=== PATIENT | male | born 1945 | race American Indian/Alaskan Native ===

== ENCOUNTER 2018-10-08 14:26 | Inpatient (IN) | payer MEDICARE, OTHER ==
[2018-10-08] MEDS ORDERED: KEPPRA 1,000 MG/NS 0.75% 100ML 1,000 MG/100 ML BAG IV ONE (14:33)
--- NOTE | 2018-10-08 14:38 | Emergency Department Report ---
ED General Adult HPI - General Stated complaint: STROKE Time Seen by Provider: 10/08/18 14:29 - History of Present Illness Initial comments: 73-year-old male who apparently I have seen before under somewhat similar circumstances. The patient had a generalized seizure today. Paramedics reported that his pulse oximetry showed a value of 60% on their arrival. They placed him on high flow O2. He arrives in the emergency department with moderate respiratory distress. He is not verbal. According to medics they perceive that he had a right facial droop after his seizure. I did not appreciate that at the time of his initial arrival. He is lethargic and unable to provide any history, apparently postictal. I believe the patient is from a [facility] setting. Per my previous note: Patient is accompanied by his that said that he was disoriented today and had some twitching movements. She claims that he periodically gets disoriented but when she gives him a Keppra it resolves after a few minutes. She was concerned today because she gave a Keppra and he continued to be confused. He has some twitching of his right foot. EMS was notified. On their arrival patient was found to be conscious sitting upright in a chair. He had elevated blood pressure of 180/120. Paramedics noted some "myoclonic jerking" in his right arm. Patient currently feels like he is back to normal. According to the , his last seizure was in 2011. He is status post a craniotomy for a presumably hypertensive hemorrhage. He's had "several TIAs eating up to this event in 2011 with a history of CVA in 2004. The states that he is able to walk. He has mild right-sided weakness. He has no acute weakness. He is able to speak coherently at this time. He had no slurred speech or any visual change. According to the he has some chronic aphasia. -: minutes(s) -: minutes(s) - Related Data Home Medications Medication Instructions Recorded Confirmed Last Taken Aspirin [Baby Aspirin] 81 mg PO QDAY 04/02/14 04/02/14 Unknown Atorvastatin [Lipitor] 40 mg PO QHS 04/02/14 04/02/14 Unknown Bicalutamide [Casodex] 50 mg PO DAILY 04/02/14 04/02/14 Unknown Enoxaparin [Lovenox] 40 mg SQ QDAY 04/02/14 04/02/14 Unknown Leuprolide Acetate [Eligard] 22.5 mg SQ 04/02/14 04/02/14 Unknown Losartan [Cozaar] 100 mg PO QDAY 04/02/14 04/02/14 Unknown Potassium Chloride [K-Dur] 10 meq PO QDAY 04/02/14 04/02/14 Unknown amLODIPine [Norvasc] 5 mg PO DAILY 04/02/14 04/02/14 Unknown hydroCHLOROthiazide [Hctz] 25 mg PO QDAY 04/02/14 04/02/14 Unknown levETIRAcetam [Keppra] 500 mg PO BID 04/02/14 04/02/14 Unknown Allergies Allergy/AdvReac Type Severity Reaction Status Date / Time No Known Allergies Allergy Verified 04/03/14 01:38 ED Review of Systems ROS: Stated complaint: STROKE Other details as noted in HPI Comment: Unobtainable due to pts medical conditions ED Past Medical Hx - Past Medical History Hx Hypertension: Yes Hx Seizures: Yes (focal seizures R arm) Hx COPD: Yes Additional medical history: High cholesterol, Rectal bleeding - Surgical History Additional Surgical History: head surgery from previous cva - Social History Smoking Status: Former Smoker (none 10 years) Substance Use Type: Alcohol (none 10 years), Prescribed - Medications Home Medications: Home Medications Medication Instructions Recorded Confirmed Last Taken Type Aspirin [Baby Aspirin] 81 mg PO QDAY 04/02/14 04/02/14 Unknown History Atorvastatin [Lipitor] 40 mg PO QHS 04/02/14 04/02/14 Unknown History Bicalutamide [Casodex] 50 mg PO DAILY 04/02/14 04/02/14 Unknown History Enoxaparin [Lovenox] 40 mg SQ QDAY 04/02/14 04/02/14 Unknown History Leuprolide Acetate [Eligard] 22.5 mg SQ 04/02/14 04/02/14 Unknown History Losartan [Cozaar] 100 mg PO QDAY 04/02/14 04/02/14 Unknown History Potassium Chloride [K-Dur] 10 meq PO QDAY 04/02/14 04/02/14 Unknown History amLODIPine [Norvasc] 5 mg PO DAILY 04/02/14 04/02/14 Unknown History hydroCHLOROthiazide [Hctz] 25 mg PO QDAY 04/02/14 04/02/14 Unknown History levETIRAcetam [Keppra] 500 mg PO BID 04/02/14 04/02/14 Unknown History ED Physical Exam - General Limitations: Physical Limitation General appearance: lethargic, other (moderate respiratory distress) - Head Head exam: Present: other (healed craniotomy scar) - Eye Eye exam: Absent: scleral icterus - ENT ENT exam: Present: other (no facial asymmetry) - Neck Neck exam: Absent: tenderness, meningismus - Respiratory Respiratory exam: Present: accessory muscle use, other (port right chest) - Cardiovascular Cardiovascular Exam: Present: normal rhythm, tachycardia - GI/Abdominal GI/Abdominal exam: Present: soft, distended, tenderness, guarding, rebound, other (healed celiotomy scar) - Extremities Exam Extremities exam: Present: normal inspection - Neurological Exam Neurological exam: Present: other (NIH stroke score is non properly calculable at this point. The patient is post ictal.) - Psychiatric Psychiatric exam: Present: flat affect - Skin Skin exam: Present: warm, dry ED Course Vital Signs 10/08/18 10/08/18 10/08/18 14:46 14:51 15:00 Temperature 102.1 F H Pulse Rate 136 H 130 H 138 H Respiratory 29 H 20 29 H Rate Blood Pressure 99/60 88/55 90/54 Blood Pressure [Right] O2 Sat by Pulse 78 L 86 Oximetry 10/08/18 10/08/18 10/08/18 15:16 15:37 15:43 Temperature Pulse Rate 151 H 139 H Respiratory 29 H 29 H 29 H Rate Blood Pressure 99/70 Blood Pressure 101/67 [Right] O2 Sat by Pulse 100 100 Oximetry - Reevaluation(s) Reevaluation #1: Chest x-ray seems to be consistent with right-sided pneumonia. The patient is tachycardic in the 130s. He is quite. I believe he likely has severe sepsis. He also has bilateral nephrostomy tubes. I am uncertain as to his recent history since I had seen him several years ago. At this point he will be treated empirically for sepsis. Awaiting ABG result. 10/08/18 14:51 Reevaluation #2: Patient's blood pressure is maintaining. He is fairly tachycardic. His BNP of over 3000. I am giving him boluses of IV fluid. Certainly has a significant cardiomyopathy. 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 I have discussed the end of life care with this patient's . She would like him to be a full code. I have explained to her that he does have sepsis and respiratory failure as well as all his other comorbidities. Now with standing, she would like the patient to be a full code. He does not have a current indication for endotracheal intubation at this time. He will be admitted to the ICU by Dr. Valdivia. 10/08/18 15:55 Reevaluation #3: Discussed with Dr. Fountain. Okay to admit to ICU. We'll discuss with Dr. Coates. 10/08/18 16:05 ED Medical Decision Making - Lab Data Result diagrams: 10/08/18 14:50 10/08/18 14:50 Laboratory Results - last 24 hr 10/08/18 10/08/18 10/08/18 14:50 14:50 14:50 WBC 25.2 H RBC 4.00 Hgb 9.9 L Hct 31.4 L MCV 79 L MCH 25 L MCHC 32 RDW 20.3 H Plt Count 514 H Lymph % (Auto) [employer] [place] % (Auto) Outdoor Ad[employer] Leasing Agent Eos % (Auto) Outdoor Advertising Leasing Agent Baso % (Auto) Outdoor Advertising Leasing Agent Lymph # [employer] Leasing Agent [place] # Outdoor Advertising Leasing Agent Eos # Outdoor Advertising Leasing Agent Baso # Outdoor Advertising Leasing Agent Seg Neutrophils % Outdoor Advertising Leasing Agent Seg Neutrophils # Outdoor Advertising Leasing Agent PT 15.3 H INR 1.17 H APTT 31.5 POC ABG pH POC ABG pCO2 POC ABG pO2 POC ABG HCO3 POC ABG Total CO2 POC ABG O2 Sat POC ABG Base Excess FiO2 Sodium 141 Potassium 3.3 L Chloride 101.0 Carbon Dioxide 23 Anion Gap 20 BUN 23 H Creatinine 1.8 H Estimated GFR 45 BUN/Creatinine Ratio 13 Glucose 173 H Lactic Acid Calcium 10.2 Magnesium Total Bilirubin Direct Bilirubin Indirect Bilirubin AST ALT Alkaline Phosphatase Ammonia Troponin T 0.052 H NT-Pro-B Natriuret Pep Total Protein Albumin Albumin/Globulin Ratio Triglycerides 94 Cholesterol 199 LDL Cholesterol Direct 143 H HDL Cholesterol 48 Cholesterol/HDL Ratio 4.14 10/08/18 10/08/18 10/08/18 14:50 14:50 14:50 WBC RBC Hgb Hct MCV MCH MCHC RDW Plt Count Lymph % (Auto) [place] % (Auto) Eos % (Auto) Baso % (Auto) Lymph # [place] # Eos # Baso # Seg Neutrophils % Seg Neutrophils # PT INR APTT POC ABG pH POC ABG pCO2 POC ABG pO2 POC ABG HCO3 POC ABG Total CO2 POC ABG O2 Sat POC ABG Base Excess FiO2 Sodium Potassium Chloride Carbon Dioxide Anion Gap BUN Creatinine Estimated GFR BUN/Creatinine Ratio Glucose Lactic Acid 3.80 H* Calcium Magnesium 1.40 L Total Bilirubin 0.90 Direct Bilirubin < 0.2 Indirect Bilirubin 0.7 AST 14 ALT < 5 L Alkaline Phosphatase 74 Ammonia 55.0 Troponin T NT-Pro-B Natriuret Pep 3870 H Total Protein 7.8 Albumin 3.5 L Albumin/Globulin Ratio 0.8 Triglycerides Cholesterol LDL Cholesterol Direct HDL Cholesterol Cholesterol/HDL Ratio 10/08/18 14:58 WBC RBC Hgb Hct MCV MCH MCHC RDW Plt Count Lymph % (Auto) [place] % (Auto) Eos % (Auto) Baso % (Auto) Lymph # [place] # Eos # Baso # Seg Neutrophils % Seg Neutrophils # PT INR APTT POC ABG pH 7.478 H POC ABG pCO2 26.1 L POC ABG pO2 151 H POC ABG HCO3 19.3 POC ABG Total CO2 20 POC ABG O2 Sat 100 POC ABG Base Excess -4 FiO2 100 Sodium Potassium Chloride Carbon Dioxide Anion Gap BUN Creatinine Estimated GFR BUN/Creatinine Ratio Glucose Lactic Acid Calcium Magnesium Total Bilirubin Direct Bilirubin Indirect Bilirubin AST ALT Alkaline Phosphatase Ammonia Troponin T NT-Pro-B Natriuret Pep Total Protein Albumin Albumin/Globulin Ratio Triglycerides Cholesterol LDL Cholesterol Direct HDL Cholesterol Cholesterol/HDL Ratio - EKG Data -: EKG Interpreted by Ks EKG shows normal: sinus rhythm Rate: tachycardia - EKG Data Interpretation: nonspecific ST-T wave sher, other (LVH, poor R-wave progression, left atrial enlargement, left anterior fascicular block, no acute ischemic changes) - Radiology Data Radiology results: report reviewed Suggest right-sided pneumonia Critical care attestation.: If time is entered above; I have spent that time in minutes in the direct care of this critically ill patient, excluding procedure time. ED Disposition Clinical Impression: Respiratory distress, Chronic renal insufficiency, stage II (mild), Toxic encephalopathy, Hypomagnesemia, Hypokalemia Sepsis Qualifiers: Sepsis type: sepsis due to unspecified organism Qualified Code(s): A41.9 - Sepsis, unspecified organism Disposition: OP ADMIT IP TO THIS HOSP Is pt being admited?: Yes Does the pt Need Aspirin: Yes Condition: Stable Time of Disposition: 16:08
[2018-10-08] MEDS ORDERED: MERREM 1,000 MG in NACL 0.9% 100 ML IV ONE (14:49)
--- NOTE | 2018-10-08 14:49 | XRay Report ---
AP CHEST: HISTORY: Respiratory distress No comparison. Subtle patchy infiltrate is suspected throughout the right lung. Correlate for pneumonia. The left lung is generally clear. No pleural effusion or pneumothorax. Heart size is within normal limits. A right [id number] terminates near the cavoatrial junction. IMPRESSION: Subtle right lung infiltrate. Correlate for pneumonia.
[2018-10-08] MEDS ORDERED: NACL 0.9% 1000 ML 1,000 ML IV ONE ×2 (14:50→17:55)
[2018-10-08] MEDS ORDERED: NACL 0.9% 1000 ML 1,000 ML ONE ×3 (14:53→22:09)
[2018-10-08] MEDS ORDERED: VANCOMYCIN PHARMACY TO DOSE IV SCH ×2 (15:00→22:00)
[2018-10-08 15:23] LABS: INR 1.17 (0.87-1.13)
[2018-10-08 15:24] LABS: Partial Thromboplastin Time 31.5 Sec. (24.2-36.6)
[2018-10-08 15:27] LABS: Hematocrit 31.4 % (35.5-45.6); Hemoglobin 9.9 gm/dl (11.8-15.2); Mean Corpuscular HGB Conc 32 % (32-34); Mean Corpuscular Volume 79 fl (84-94); Platelet Count 514 K/mm3 (140-440)
[2018-10-08 15:30] LABS: Calcium 10.2 mg/dL (8.4-10.2)
[2018-10-08 15:34] LABS: Albumin 3.5 g/dL (3.9-5)
[2018-10-08 15:35] LABS: Red Cell Distribution Width 20.3 % (13.2-15.2)
[2018-10-08 15:41] LABS: Alanine Aminotransferase < 5 units/L (7-56); Bilirubin,Direct < 0.2 mg/dL (0-0.2)
[2018-10-08] MEDS ORDERED: NACL 0.9% 1000 ML 500 ML IV ONE (15:54)
[2018-10-08 15:57] LABS: Chol/HDL Ratio 4.14 %
[2018-10-08] MEDS ORDERED: TYLENOL PR ONE (16:00)
[2018-10-08] MEDS ORDERED: MAGNESIUM SULFATE 2GM/50ML 2 GM/50 ML BAG IV ONE (16:06)
[2018-10-08] MEDS ORDERED: ASPIRIN PR ONE ×2 (16:08→18:33)
[2018-10-08 16:18] LABS: Basophils % (Manual) 0 % (0.0-1.8); Eosinophils % (Manual) 0 % (0.0-4.3); RBC Morphology Normal; Total Cells Counted 100
[2018-10-08] MEDS ORDERED: VANCOMYCIN 2,000 MG in NACL 0.9% 500 ML 500 ML IV ONE (18:00)
[2018-10-08] MEDS ORDERED: DUONEB *Not for PRN Use IH ONE (19:53)
[2018-10-08] MEDS ORDERED: PROVENTIL IH ONE (20:17)
[2018-10-08] MEDS ORDERED: ATIVAN ONE (20:59)
[2018-10-08] MEDS ORDERED: ATIVAN IV ONE (21:04)
[2018-10-08] MEDS ORDERED: TYLENOL PO PRN (21:31)
[2018-10-08] MEDS ORDERED: DILAUDID IV PRN (21:31)
[2018-10-08] MEDS ORDERED: SODIUM CHLORIDE FLUSH SYRINGE 10 ML IV PRN (21:31)
[2018-10-08] MEDS ORDERED: ZOFRAN IV PRN (21:31)
[2018-10-08] MEDS ORDERED: PROVENTIL IH PRN (21:34)
[2018-10-08] MEDS ORDERED: NACL 0.9% 1000 ML 1,000 ML IV SCH (22:00)
[2018-10-08] MEDS ORDERED: SOLU-Medrol ONE (22:17)
[2018-10-08] MEDS: SOLU-Medrol IV SCH (22:18)
[2018-10-08] MEDS: SODIUM CHLORIDE FLUSH SYRINGE 10 ML IV SCH (22:18)
[2018-10-08] MEDS: KEPPRA 750 MG in NACL 0.9% 100 ML IV SCH (23:36)
[2018-10-08] MEDS: MERREM/NS 500 MG/50 ML 500 MG/50 ML BAG IV SCH (23:36)
--- NOTE | 2018-10-09 03:28 | Cat Scan Report ---
FINAL REPORT PROCEDURE: CT HEAD/BRAIN WO CON TECHNIQUE: Computerized tomography of the head was performed without contrast material. HISTORY: neuro deficits <6hrs or sx present upon awakening COMPARISON: No prior studies are available for comparison. FINDINGS: Skull and scalp: Normal. Paranasal sinuses: Normal. Ventricles and subarachnoid spaces: Normal. Cerebrum: There is no evidence of acute intra hemorrhage, the hematoma or infarction. Moderate atroph y and periventricular deep white matter change. A larger area encephalomalacia identified in the left frontal and temporal lobes consistent with old infarction or trauma. Cerebellum and brainstem: No evidence of hemorrhage, acute infarction or mass. Vasculature: Normal. Comments: None. IMPRESSION: There is no evidence of an acute intracranial process. Moderate atrophy and slight periventricular de ep white matter change. Sequelae from infarction versus trauma right frontal and temporal lobes.
[2018-10-09 04:56] LABS: Hematocrit 31.3 % (35.5-45.6); Hemoglobin 9.8 gm/dl (11.8-15.2); Mean Corpuscular HGB Conc 31 % (32-34); Mean Corpuscular Volume 81 fl (84-94); Platelet Count 255 K/mm3 (140-440); Red Blood Count 3.87 M/mm3 (3.65-5.03)
[2018-10-09 04:57] LABS: Red Cell Distribution Width 20.6 % (13.2-15.2)
[2018-10-09 05:18] LABS: Albumin 2.5 g/dL (3.9-5); BUN/Creatinine Ratio 16; Blood Urea Nitrogen 26 mg/dL (9-20); Hemolysis Index 13
[2018-10-09 05:39] LABS: Anisocytosis 1+; Band Neutrophils # (Manual) 2.5 K/mm3; Basophils % (Manual) 0 % (0.0-1.8); Eosinophils % (Manual) 0 % (0.0-4.3); Ovalocytes 1+; Stomatocytes Few; Tear Drop Cells Few; Total Cells Counted 100
[2018-10-09 05:40] LABS: Burr Cells Few; Giant Platelets Rare; Large Platelets Few; Target Cells Rare
[2018-10-09 05:45] LABS: Alanine Aminotransferase < 5 units/L (7-56)
[2018-10-09] MEDS: SOLU-Medrol IV SCH ×3 (06:10→22:57)
[2018-10-09] MEDS: MERREM/NS 500 MG/50 ML 500 MG/50 ML BAG IV SCH (06:15)
[2018-10-09] MEDS ORDERED: SOLU-Medrol ONE ×2 (06:31→16:19)
--- NOTE | 2018-10-09 06:43 | Event Note ---
Date: 10/08/18 See dictated H/p in reports
[2018-10-09] MEDS ORDERED: DUONEB *Not for PRN Use IH ONE ×2 (08:33→12:43)
[2018-10-09] MEDS: DUONEB *Not for PRN Use IH SCH ×4 (08:34→21:40)
--- NOTE | 2018-10-09 08:35 | History and Physical Report ---
CHIEF COMPLAINT: Increasing shortness of breath and low oxygen saturations. HISTORY OF PRESENT ILLNESS: A 73-year-old male presents with generalized seizure followed by low oxygen saturations. EMS put the patient on high flow oxygen. The patient is put on BiPAP in the Emergency Room. The patient became very short of breath over the last few hours since morning. No fever or chills. No cough. Respiratory distress present. PAST MEDICAL HISTORY: Significant for hypertension, seizures, COPD, high cholesterol and rectal bleeding. PAST SURGICAL HISTORY: Had surgery from previous cerebrovascular accident. SOCIAL HISTORY: Former smoker, did not smoke for the last 10 years. Alcohol occasionally. CURRENT MEDICATIONS: On the chart. REVIEW OF SYSTEMS: Significant for increasing shortness of breath for the last few hours. Sudden onset. Also one episode of seizures. Otherwise, doing well. A 14-point review of systems done. PHYSICAL EXAMINATION: GENERAL: Elderly male, on BiPAP. Trying to cooperate. Bit lethargic. VITAL SIGNS: Temperature is 99.0. Blood pressure is 80/54. Pulse is 112. Initial sats were low 80%, improved to 100% with BiPAP. HEENT: Unremarkable. Pupils equal and reactive. NECK: Supple. Accessory muscles of respiration are prominent. LUNGS: Bilateral inspiratory rhonchi and expiratory rhonchi present. CARDIOVASCULAR SYSTEM: S1, S2 heard. No gallop, no murmur, no rub. Apical impulse in left fifth intercostal space in midclavicular line. ABDOMEN: Soft and benign. No hepatosplenomegaly. No guarding, no rigidity. Hernial orifices are normal. EXTREMITIES: Good pedal pulses. No pedal edema. CENTRAL NERVOUS SYSTEM: Alert and oriented x 4, nonfocal exam. LABORATORY DATA: Significant for white count of 25,200, H and H of 9.9 and 31.4, platelet count of 514,000. ABG significant for pH of 7.47, pCO2 of 26, pO2 of 151, bicarb of 19.3. Sodium of 141, potassium of 3.3, BUN and creatinine of 23 and 1.8, glucose of 173. A1c of 6.1. Lactic acid of 3.8, magnesium of 1.4. BNP of 3870. DIAGNOSTIC DATA: Chest x-ray shows right lower lobe infiltrate. ASSESSMENT AND PLAN: 1. Sepsis secondary to right lower lobe pneumonia. The patient initiated on sepsis protocol. The patient was started on meropenem, IV vancomycin. Not Zosyn. 2. Acute respiratory failure. The patient initiated on nebulizer treatments, IV Solu-Medrol at 60 mg q. 8 hours and IV antibiotics. 3. Chronic obstructive pulmonary disease exacerbation. Same nebulizer treatments, IV antibiotics and steroids. Critical care consult requested by Dr. Fountain. 4. Congestive heart failure is possibility. Echocardiogram ordered for ejection fraction. BNP is high. 5. Type 2 diabetes. The patient has a high blood glucose levels. Coverage for now. 6. Hypokalemia, supplemented. 7. Acute kidney injury, gentle IV hydration. 8. Deep venous thrombosis prophylaxis, Lovenox 40 mg subcutaneous daily. CRITICAL CARE STATEMENT: Critical care time 40 minutes. JOB# [id number] RITA/EDGARDO ROSSI
[2018-10-09] MEDS: SODIUM CHLORIDE FLUSH SYRINGE 10 ML IV SCH ×2 (10:15→22:59)
--- NOTE | 2018-10-09 10:45 | Consultation ---
History of Present Illness Consult date: 10/09/18 Consult reason: shortness of breath History of present illness: 73 year old male with past medical history of metastatic prostate cancer currently residing in a rehab facility brought in to the ER due to altered mental status. reports that patient has a history of recurrent seizures since his CVA in 2004. He had a seizure yesterday and since then he has been altered and not returning to his baseline mental capacity. A CT head showing NA P. denies previous history of cardiac disease. denies history of chest pain, heaviness or shortness of breath. She however reports that patient started having respiratory distress after his seizure episode. ECG is showing sinus tachycardia, LAE, and poor R wave progression. Troponin T 0.052. Past History Past Medical History: atrial fib, cancer, DVT, hypertension, seizures, stroke Past Surgical History: TURP, Other (bladder surgery) Social history: no significant social history Family history: no significant family history Medications and Allergies Allergies Allergy/AdvReac Type Severity Reaction Status Date / Time No Known Allergies Allergy Verified 04/03/14 01:38 Home Medications Medication Instructions Recorded Confirmed Last Taken Type Aspirin [Aspirin BABY CHEW TAB] 81 mg PO QDAY 10/08/18 10/08/18 Unknown History Enzalutamide (Nf) [Xtandi (Nf)] 120 mg PO QDAY 10/08/18 10/08/18 Unknown History Ferrous Sulfate [Feosol] 325 mg PO QDAY 10/08/18 10/08/18 Unknown History Finasteride [Propecia] 1 mg PO QDAY 10/08/18 10/08/18 Unknown History Lisinopril [Zestril TAB] 30 mg PO QDAY 10/08/18 10/08/18 Unknown History Losartan Potassium 50 mg PO QDAY 10/08/18 10/08/18 Unknown History Metoprolol [Lopressor] 25 mg PO BID 10/08/18 10/08/18 Unknown History Tamsulosin [Flomax] 0.4 mg PO QDAY 10/08/18 10/08/18 Unknown History Triamterene/Hydrochlorothiazid 1 each PO QDAY 10/08/18 10/08/18 Unknown History [Triamterene-Hctz 75-50 mg Tab] levETIRAcetam [Keppra TAB] 500 mg PO BID 10/08/18 10/08/18 Unknown History predniSONE [Prednisone] 5 mg PO BID 10/08/18 10/08/18 Unknown History Active Meds: Active Medications Acetaminophen (Tylenol) 650 mg PO Q4H PRN PRN Reason: Pain MILD(1-3)/Fever >100.5/[place] Albuterol (Proventil) 2.5 mg IH Q4HRT PRN PRN Reason: Shortness Of Breath Albuterol/Ipratropium (Duoneb *Not For Prn Use*) 1 ampul IH QIDRT [facility] Last Admin: 10/09/18 08:34 Dose: 1 ampul Documented by: Hydromorphone HCl (Dilaudid) 0.5 mg IV Q3H PRN PRN Reason: Pain , Severe (7-10) Vancomycin HCl 1,750 mg/ (Sodium Chloride) 535 mls @ 333.333 mls/hr IV Q24H [facility] Sodium Chloride (Nacl 0.9% 1000 Ml) 1,000 mls @ 42 mls/hr IV DIRECT [facility] Meropenem (Merrem/Ns 500 Mg/50 Ml) 500 mg in 50 mls @ 50 mls/hr IV Q6HR [facility] Last Admin: 10/09/18 06:15 Dose: 50 mls/hr Documented by: Levetiracetam 750 mg/ Sodium (Chloride) 107.5 mls @ 400 mls/hr IV Q12HR [facility] Last Admin: 10/08/18 23:36 Dose: 400 mls/hr Documented by: Methylprednisolone Sodium Succinate (Solu-Medrol) 60 mg IV Q8HR [facility] Last Admin: 10/09/18 06:10 Dose: 60 mg Documented by: Ondansetron HCl (Zofran) 4 mg IV Q8H PRN PRN Reason: Nausea And Vomiting Sodium Chloride (Sodium Chloride Flush Syringe 10 Ml) 10 ml IV BID [facility] Last Admin: 10/08/18 22:18 Dose: 10 ml Documented by: Sodium Chloride (Sodium Chloride Flush Syringe 10 Ml) 10 ml IV PRN PRN PRN Reason: LINE FLUSH Review of Systems ROS unobtainable: due to mental status Physical Examination Vital Signs Pulse Resp BP Pulse Ox 137 H 29 H 99/60 100 10/08/18 14:41 10/08/18 14:41 10/08/18 14:41 10/08/18 14:41 General appearance: other (Unresponsive) Neck: Positive: neck supple Cardiac: Positive: Reg Rate and Rhythm Lungs: Positive: Ventilated Respirations Abdomen: Positive: Soft Extremities: Absent: edema Results 10/09/18 04:08 10/09/18 04:08 Cardiac Enzymes 10/08/18 10/09/18 Range/Units 14:50 04:08 AST 14 13 (5-40) units/L Coagulation 10/08/18 Range/Units 14:50 PT 15.3 H (12.2-14.9) Sec. INR 1.17 H (0.87-1.13) APTT 31.5 (24.2-36.6) Sec. Lipids 10/08/18 Range/Units 14:50 Triglycerides 94 (2-149) mg/dL Cholesterol 199 (50-199) mg/dL HDL Cholesterol 48 (40-59) mg/dL Cholesterol/HDL Ratio 4.14 % CBC 10/08/18 10/09/18 Range/Units 14:50 04:08 WBC 25.2 H 22.6 H (4.5-11.0) K/mm3 RBC 4.00 3.87 (3.65-5.03) M/mm3 Hgb 9.9 L 9.8 L (11.8-15.2) gm/dl Hct 31.4 L 31.3 L (35.5-45.6) % Plt Count 514 H 255 (140-440) K/mm3 Lymph # Yard Brakeman Gage # Yard Brakeman Eos # Yard Brakeman Baso # Yard Brakeman Comprehensive Metabolic Panel 10/08/18 10/08/18 10/09/18 Range/Units 14:50 14:50 04:08 Sodium 141 142 (137-145) mmol/L Potassium 3.3 L 3.9 (3.6-5.0) mmol/L Chloride 101.0 108.4 H (98-107) mmol/L Carbon Dioxide 23 16 L D (22-30) mmol/L BUN 23 H 26 H (9-20) mg/dL Creatinine 1.8 H 1.6 H (0.8-1.5) mg/dL Glucose 173 H 161 H (75-100) mg/dL Calcium 10.2 9.0 (8.4-10.2) mg/dL Direct Bilirubin < 0.2 (0-0.2) mg/dL Indirect Bilirubin 0.7 mg/dL AST 14 13 (5-40) units/L ALT < 5 L < 5 L (7-56) units/L Alkaline Phosphatase 74 58 (35-129) units/L Total Protein 7.8 6.9 (6.3-8.2) g/dL Albumin 3.5 L 2.5 L (3.9-5) g/dL - EKG Interpretation EKG shows: tachycardia EKG interpretations - Telemetry EKG Rhythm: Sinus Tachycardia Assessment and Plan Altered mental status likely secondary to a proloned post ictal state History of CVA 2004 with secondary seizures History of metastatic prostate cancer History of DVT s/p IVC filter History of atrial fibrillation per Suspect that patient is not on anticoagulation due to recent history of urinary bladder bleeding Respiratory failure Suspect aspiration pneumonia based on clinical pictures, CXR and significant leukocytosis No clinical evidence of CHF Non-specific troponin Reflex sinus tachycardia Acute renal failure Lactic acidosis Recommendations: Supportive care Clinical picture is consistent with sepsis No clinical evidence of CHF
[2018-10-09] MEDS: KEPPRA 750 MG in NACL 0.9% 100 ML IV SCH (10:53)
--- NOTE | 2018-10-09 11:34 | Progress Note ---
Assessment and Plan Assessment and plan: Breakthrough seizures. Patient on keppra. at bedside tells me patient was on 1000mg bid and dose decreased to 500mg bid few month ago. Will increase to 1000mg bid Acute resp failure continue BIPAP Pneumonia right lower lobe sepsis due to pneumonia. Started on iv Abx ID Physician consulted history of metastatic prostate cancer COPD History of afib Not on anticoagulation leukocytosis GEO. Nephrology consulted Full code status History Interval history: patient had seizure at SNF, brought to ED Hospitalist Physical - Physical exam Narrative exam: GEN: Not in acute distress,lying in bed, obese HEENT: Normocephalic, atraumatic, BIPAP mask on Neck: supple, No JVD Lungs: Clear to auscultation, no wheeze Heart:S1 and S2 regular, no murmurs, rubs or gallop, Abd:soft, non tender, non distended, normal bowel sounds Ext: No edema, no clubbing or cyanosis Neuro: Stupor - Constitutional Vitals: Temp Pulse Resp BP Pulse Ox 99.2 F 95 H 20 112/81 97 10/08/18 17:56 10/09/18 10:45 10/09/18 10:45 10/09/18 10:45 10/09/18 10:45 General appearance: Present: other (Unresponsive) Results - Labs CBC & Chem 7: 10/10/18 05:20 10/10/18 05:20 Labs: Laboratory Last Values WBC 22.6 K/mm3 (4.5-11.0) H 10/09/18 04:08 RBC 3.87 M/mm3 (3.65-5.03) 10/09/18 04:08 Hgb 9.8 gm/dl (11.8-15.2) L 10/09/18 04:08 Hct 31.3 % (35.5-45.6) L 10/09/18 04:08 MCV 81 fl (84-94) L 10/09/18 04:08 MCH 25 pg (28-32) L 10/09/18 04:08 MCHC 31 % (32-34) L 10/09/18 04:08 RDW 20.6 % (13.2-15.2) H 10/09/18 04:08 Plt Count 255 K/mm3 (140-440) 10/09/18 04:08 Lymph % (Auto) Associate Account Manager 10/08/18 14:50 [place] % (Auto) Associate Account Manager 10/08/18 14:50 Eos % (Auto) Associate Account Manager 10/08/18 14:50 Baso % (Auto) Associate Account Manager 10/08/18 14:50 Lymph # Associate Account Manager 10/08/18 14:50 [place] # Associate Account Manager 10/08/18 14:50 Eos # Associate Account Manager 10/08/18 14:50 Baso # Associate Account Manager 10/08/18 14:50 Add Manual Diff Complete 10/09/18 04:08 Total Counted 100 10/09/18 04:08 Seg Neutrophils % Associate Account Manager 10/09/18 04:08 Seg Neuts % (Manual) 84.0 % (40.0-70.0) H 10/09/18 04:08 Band Neutrophils % 11.0 % 10/09/18 04:08 Lymphocytes % (Manual) 2.0 % (13.4-35.0) L 10/09/18 04:08 Reactive Lymphs % (Man) 0 % 10/09/18 04:08 Monocytes % (Manual) 3.0 % (0.0-7.3) 10/09/18 04:08 Eosinophils % (Manual) 0 % (0.0-4.3) 10/09/18 04:08 Basophils % (Manual) 0 % (0.0-1.8) 10/09/18 04:08 Metamyelocytes % 0 % 10/09/18 04:08 Myelocytes % 0 % 10/09/18 04:08 Promyelocytes % 0 % 10/09/18 04:08 Blast Cells % 0 % 10/09/18 04:08 Nucleated RBC % Not Reportable 10/09/18 04:08 Seg Neutrophils # Associate Account Manager 10/08/18 14:50 Seg Neutrophils # Man 19.0 K/mm3 (1.8-7.7) H 10/09/18 04:08 Band Neutrophils # 2.5 K/mm3 10/09/18 04:08 Lymphocytes # (Manual) 0.5 K/mm3 (1.2-5.4) L 10/09/18 04:08 Abs React Lymphs (Man) 0.0 K/mm3 10/09/18 04:08 Monocytes # (Manual) 0.7 K/mm3 (0.0-0.8) 10/09/18 04:08 Eosinophils # (Manual) 0.0 K/mm3 (0.0-0.4) 10/09/18 04:08 Basophils # (Manual) 0.0 K/mm3 (0.0-0.1) 10/09/18 04:08 Metamyelocytes # 0.0 K/mm3 10/09/18 04:08 Myelocytes # 0.0 K/mm3 10/09/18 04:08 Promyelocytes # 0.0 K/mm3 10/09/18 04:08 Blast Cells # 0.0 K/mm3 10/09/18 04:08 WBC Morphology Not Reportable 10/09/18 04:08 Hypersegmented Neuts Not Reportable 10/09/18 04:08 Hyposegmented Neuts Not Reportable 10/09/18 04:08 Hypogranular Neuts Not Reportable 10/09/18 04:08 Smudge Cells Not Reportable 10/09/18 04:08 Toxic Granulation Not Reportable 10/09/18 04:08 Toxic Vacuolation Not Reportable 10/09/18 04:08 Dohle Bodies Not Reportable 10/09/18 04:08 Pelger-Huet Anomaly Not Reportable 10/09/18 04:08 Sydnee Rods Not Reportable 10/09/18 04:08 Platelet Estimate Appears normal 10/09/18 04:08 Clumped Platelets Not Reportable 10/09/18 04:08 Plt Clumps, EDTA Not Reportable 10/09/18 04:08 Large Platelets Few 10/09/18 04:08 Giant Platelets Rare 10/09/18 04:08 Platelet Satelliting Not Reportable 10/09/18 04:08 Plt Morphology Comment Not Reportable 10/09/18 04:08 RBC Morphology Not Reportable 10/09/18 04:08 Dimorphic RBCs Not Reportable 10/09/18 04:08 Polychromasia Not Reportable 10/09/18 04:08 Hypochromasia Not Reportable 10/09/18 04:08 Poikilocytosis Not Reportable 10/09/18 04:08 Anisocytosis 1+ 10/09/18 04:08 Microcytosis 1+ 10/09/18 04:08 Macrocytosis Not Reportable 10/09/18 04:08 Spherocytes Not Reportable 10/09/18 04:08 Pappenheimer Bodies Not Reportable 10/09/18 04:08 Sickle Cells Not Reportable 10/09/18 04:08 Target Cells Rare 10/09/18 04:08 Tear Drop Cells Few 10/09/18 04:08 Ovalocytes 1+ 10/09/18 04:08 Stomatocytes Few 10/09/18 04:08 Helmet Cells Not Reportable 10/09/18 04:08 [place] Bodies Not Reportable 10/09/18 04:08 [place] Rings Not Reportable 10/09/18 04:08 [place] Cells Few 10/09/18 04:08 Bite Cells Not Reportable 10/09/18 04:08 Crenated Cell Not Reportable 10/09/18 04:08 Elliptocytes Few 10/09/18 04:08 Acanthocytes (Spur) Not Reportable 10/09/18 04:08 Rouleaux Not Reportable 10/09/18 04:08 Hemoglobin C Crystals Not Reportable 10/09/18 04:08 Schistocytes Not Reportable 10/09/18 04:08 Malaria parasites Not Reportable 10/09/18 04:08 [place] Bodies Not Reportable 10/09/18 04:08 Hem Pathologist Commnt No 10/09/18 04:08 PT 15.3 Sec. (12.2-14.9) H 10/08/18 14:50 INR 1.17 (0.87-1.13) H 10/08/18 14:50 APTT 31.5 Sec. (24.2-36.6) 10/08/18 14:50 Thrombin Time 19.0 Sec. (15.1-19.6) 10/08/18 14:50 POC ABG pH 7.433 (7.35-7.45) 10/08/18 18:38 POC ABG pCO2 28.7 (35-45) L 10/08/18 18:38 POC ABG pO2 219 (80-105) H 10/08/18 18:38 POC ABG HCO3 19.2 10/08/18 18:38 POC ABG Total CO2 20 10/08/18 18:38 POC ABG O2 Sat 100 10/08/18 18:38 POC ABG Base Excess -5 10/08/18 18:38 FiO2 60 % 10/08/18 18:38 Sodium 142 mmol/L (137-145) 10/09/18 04:08 Potassium 3.9 mmol/L (3.6-5.0) 10/09/18 04:08 Chloride 108.4 mmol/L (98-107) H 10/09/18 04:08 Carbon Dioxide 16 mmol/L (22-30) L D 10/09/18 04:08 Anion Gap 22 mmol/L 10/09/18 04:08 BUN 26 mg/dL (9-20) H 10/09/18 04:08 Creatinine 1.6 mg/dL (0.8-1.5) H 10/09/18 04:08 Estimated GFR 52 ml/min 10/09/18 04:08 BUN/Creatinine Ratio 16 % 10/09/18 04:08 Glucose 161 mg/dL (75-100) H 10/09/18 04:08 Hemoglobin A1c 6.1 % (4-6) H 10/08/18 14:50 Lactic Acid 3.80 mmol/L (0.7-2.0) H* 10/08/18 14:50 Calcium 9.0 mg/dL (8.4-10.2) 10/09/18 04:08 Magnesium 1.40 mg/dL (1.7-2.3) L 10/08/18 14:50 Total Bilirubin 0.70 mg/dL (0.1-1.2) 10/09/18 04:08 Direct Bilirubin < 0.2 mg/dL (0-0.2) 10/08/18 14:50 Indirect Bilirubin 0.7 mg/dL 10/08/18 14:50 AST 13 units/L (5-40) 10/09/18 04:08 ALT < 5 units/L (7-56) L 10/09/18 04:08 Alkaline Phosphatase 58 units/L (35-129) 10/09/18 04:08 Ammonia 55.0 umol/L (25-60) 10/08/18 14:50 Troponin T 0.052 ng/mL (0.00-0.029) H 10/08/18 14:50 NT-Pro-B Natriuret Pep 3870 pg/mL (0-900) H 10/08/18 14:50 Total Protein 6.9 g/dL (6.3-8.2) 10/09/18 04:08 Albumin 2.5 g/dL (3.9-5) L 10/09/18 04:08 Albumin/Globulin Ratio 0.6 % 10/09/18 04:08 Triglycerides 94 mg/dL (2-149) 10/08/18 14:50 Cholesterol 199 mg/dL (50-199) 10/08/18 14:50 LDL Cholesterol Direct 143 mg/dL (50-130) H 10/08/18 14:50 HDL Cholesterol 48 mg/dL (40-59) 10/08/18 14:50 Cholesterol/HDL Ratio 4.14 % 10/08/18 14:50
--- NOTE | 2018-10-09 12:05 | Consultation ---
History of Present Illness - Reason for Consult Consult date: 10/09/18 Sepsis Requesting physician: SEAN ALVARADO - History of Present Illness The patient is a 73-year-old male with metastatic prostate cancer status post bilateral nephrostomy tubes (as per his , these were recently exchanged, patient is on schedule for exchanges once a month), currently on chemotherapy through a PORT, residential resident, prior craniotomy and left frontotemporal encephalomalacia (?prior hypertensive bleed), seizure disorder was brought to the emergency room yesterday by EMS. As per the patient's , the patient developed a seizure and had altered mental status after that. She had seen him the previous day and he appeared to be at his baseline state of health. Here, patient was noted to be hypoxic and in moderate respiratory distress. He was placed on BiPAP. He was also noted to have significant leukocytosis and a fever concerning for sepsis. He was empirically started on meropenem and vancomycin. Patient is currently on BiPAP, is able to follow basic commands. History is still limited due to altered mental status and BiPAP. History obtained by chart review and by discussing with patient's at bedside. Review of Systems: unable to obtain due to AMS and BiPAP. Past History Past Medical History: atrial fib, cancer, DVT, hypertension, seizures, stroke Past Surgical History: TURP, Other (bladder surgery) Social history: no significant social history Family history: no significant family history Medications and Allergies Allergies Allergy/AdvReac Type Severity Reaction Status Date / Time No Known Allergies Allergy Verified 04/03/14 01:38 Home Medications Medication Instructions Recorded Confirmed Last Taken Type Aspirin [Aspirin BABY CHEW TAB] 81 mg PO QDAY 10/08/18 10/08/18 Unknown History Enzalutamide (Nf) [Xtandi (Nf)] 120 mg PO QDAY 10/08/18 10/08/18 Unknown History Ferrous Sulfate [Feosol] 325 mg PO QDAY 10/08/18 10/08/18 Unknown History Finasteride [Propecia] 1 mg PO QDAY 10/08/18 10/08/18 Unknown History Lisinopril [Zestril TAB] 30 mg PO QDAY 10/08/18 10/08/18 Unknown History Losartan Potassium 50 mg PO QDAY 10/08/18 10/08/18 Unknown History Metoprolol [Lopressor] 25 mg PO BID 10/08/18 10/08/18 Unknown History Tamsulosin [Flomax] 0.4 mg PO QDAY 10/08/18 10/08/18 Unknown History Triamterene/Hydrochlorothiazid 1 each PO QDAY 10/08/18 10/08/18 Unknown History [Triamterene-Hctz 75-50 mg Tab] levETIRAcetam [Keppra TAB] 500 mg PO BID 10/08/18 10/08/18 Unknown History predniSONE [Prednisone] 5 mg PO BID 10/08/18 10/08/18 Unknown History Active Meds: Active Medications Acetaminophen (Tylenol) 650 mg PO Q4H PRN PRN Reason: Pain MILD(1-3)/Fever >100.5/[place] Albuterol (Proventil) 2.5 mg IH Q4HRT PRN PRN Reason: Shortness Of Breath Albuterol/Ipratropium (Duoneb *Not For Prn Use*) 1 ampul IH QIDRT [facility] Last Admin: 10/09/18 08:34 Dose: 1 ampul Documented by: Hydromorphone HCl (Dilaudid) 0.5 mg IV Q3H PRN PRN Reason: Pain , Severe (7-10) Vancomycin HCl 1,750 mg/ (Sodium Chloride) 535 mls @ 333.333 mls/hr IV Q24H [facility] Sodium Chloride (Nacl 0.9% 1000 Ml) 1,000 mls @ 42 mls/hr IV DIRECT [facility] Meropenem (Merrem/Ns 500 Mg/50 Ml) 500 mg in 50 mls @ 50 mls/hr IV Q6HR [facility] Last Admin: 10/09/18 06:15 Dose: 50 mls/hr Documented by: Levetiracetam 750 mg/ Sodium (Chloride) 107.5 mls @ 400 mls/hr IV Q12HR [facility] Last Admin: 10/09/18 10:53 Dose: 400 mls/hr Documented by: Methylprednisolone Sodium Succinate (Solu-Medrol) 60 mg IV Q8HR [facility] Last Admin: 10/09/18 06:10 Dose: 60 mg Documented by: Ondansetron HCl (Zofran) 4 mg IV Q8H PRN PRN Reason: Nausea And Vomiting Sodium Chloride (Sodium Chloride Flush Syringe 10 Ml) 10 ml IV BID [facility] Last Admin: 10/08/18 22:18 Dose: 10 ml Documented by: Sodium Chloride (Sodium Chloride Flush Syringe 10 Ml) 10 ml IV PRN PRN PRN Reason: LINE FLUSH Physical Examination - Physical Exam Narrative exam: Physical Exam: Constitutional: Drowsy, on BiPAP, can be awakened Head, Ears, Nose: Normocephalic, atraumatic. External ears, nose normal Eyes: Conjunctivae/corneas clear. No icterus. No ptosis. Neck: Supple, no meningeal signs Oral: BiPAP, unable to examine Cardiovascular: S1, S2 normal. Respiratory: Good air entry, clear to auscultation bilaterally GI: Soft, non-tender; bowel sounds normal. No peritoneal signs Musculoskeletal: No pedal edema, no cyanosis. B/L Nephrostomy tubes + with dark urine Skin: No rash or abscess Hem/Lymphatic: No palpable cervical or supraclavicular nodes. No lymphangitis Psych: no agitation Neurological: drowsy, can be awakened, following simple commands. - Constitutional Vitals: Vital Signs Temp Pulse Resp BP Pulse Ox 99.2 F 95 H 20 112/81 97 10/08/18 17:56 10/09/18 10:45 10/09/18 10:45 10/09/18 10:45 10/09/18 10:45 Temperature -Last 24 Hours Temperature 99.2 F Temperature 102.1 F Results - Labs CBC & Chem 7: 10/09/18 04:08 10/09/18 04:08 Labs: Abnormal lab results 10/08/18 10/08/18 10/08/18 Range/Units 14:50 14:50 14:50 WBC 25.2 H (4.5-11.0) K/mm3 Hgb 9.9 L (11.8-15.2) gm/dl Hct 31.4 L (35.5-45.6) % MCV 79 L (84-94) fl MCH 25 L (28-32) pg MCHC (32-34) % RDW 20.3 H (13.2-15.2) % Plt Count 514 H (140-440) K/mm3 Seg Neuts % (Manual) 91.0 H (40.0-70.0) % Lymphocytes % (Manual) 4.0 L (13.4-35.0) % Seg Neutrophils # Man 22.9 H (1.8-7.7) K/mm3 Lymphocytes # (Manual) 1.0 L (1.2-5.4) K/mm3 Monocytes # (Manual) 1.3 H (0.0-0.8) K/mm3 PT 15.3 H (12.2-14.9) Sec. INR 1.17 H (0.87-1.13) POC ABG pH (7.35-7.45) POC ABG pCO2 (35-45) POC ABG pO2 (80-105) Potassium 3.3 L (3.6-5.0) mmol/L Chloride (98-107) mmol/L Carbon Dioxide (22-30) mmol/L BUN 23 H (9-20) mg/dL Creatinine 1.8 H (0.8-1.5) mg/dL Glucose 173 H (75-100) mg/dL Hemoglobin A1c (4-6) % Lactic Acid (0.7-2.0) mmol/L Magnesium (1.7-2.3) mg/dL ALT (7-56) units/L Troponin T 0.052 H (0.00-0.029) ng/mL NT-Pro-B Natriuret Pep (0-900) pg/mL Albumin (3.9-5) g/dL LDL Cholesterol Direct 143 H (50-130) mg/dL 10/08/18 10/08/18 10/08/18 Range/Units 14:50 14:50 14:50 WBC (4.5-11.0) K/mm3 Hgb (11.8-15.2) gm/dl Hct (35.5-45.6) % MCV (84-94) fl MCH (28-32) pg MCHC (32-34) % RDW (13.2-15.2) % Plt Count (140-440) K/mm3 Seg Neuts % (Manual) (40.0-70.0) % Lymphocytes % (Manual) (13.4-35.0) % Seg Neutrophils # Man (1.8-7.7) K/mm3 Lymphocytes # (Manual) (1.2-5.4) K/mm3 Monocytes # (Manual) (0.0-0.8) K/mm3 PT (12.2-14.9) Sec. INR (0.87-1.13) POC ABG pH (7.35-7.45) POC ABG pCO2 (35-45) POC ABG pO2 (80-105) Potassium (3.6-5.0) mmol/L Chloride (98-107) mmol/L Carbon Dioxide (22-30) mmol/L BUN (9-20) mg/dL Creatinine (0.8-1.5) mg/dL Glucose (75-100) mg/dL Hemoglobin A1c 6.1 H (4-6) % Lactic Acid 3.80 H* (0.7-2.0) mmol/L Magnesium 1.40 L (1.7-2.3) mg/dL ALT < 5 L (7-56) units/L Troponin T (0.00-0.029) ng/mL NT-Pro-B Natriuret Pep 3870 H (0-900) pg/mL Albumin 3.5 L (3.9-5) g/dL LDL Cholesterol Direct (50-130) mg/dL 10/08/18 10/08/18 10/09/18 Range/Units 14:58 18:38 04:08 WBC 22.6 H (4.5-11.0) K/mm3 Hgb 9.8 L (11.8-15.2) gm/dl Hct 31.3 L (35.5-45.6) % MCV 81 L (84-94) fl MCH 25 L (28-32) pg MCHC 31 L (32-34) % RDW 20.6 H (13.2-15.2) % Plt Count (140-440) K/mm3 Seg Neuts % (Manual) 84.0 H (40.0-70.0) % Lymphocytes % (Manual) 2.0 L (13.4-35.0) % Seg Neutrophils # Man 19.0 H (1.8-7.7) K/mm3 Lymphocytes # (Manual) 0.5 L (1.2-5.4) K/mm3 Monocytes # (Manual) (0.0-0.8) K/mm3 PT (12.2-14.9) Sec. INR (0.87-1.13) POC ABG pH 7.478 H (7.35-7.45) POC ABG pCO2 26.1 L 28.7 L (35-45) POC ABG pO2 151 H 219 H (80-105) Potassium (3.6-5.0) mmol/L Chloride (98-107) mmol/L Carbon Dioxide (22-30) mmol/L BUN (9-20) mg/dL Creatinine (0.8-1.5) mg/dL Glucose (75-100) mg/dL Hemoglobin A1c (4-6) % Lactic Acid (0.7-2.0) mmol/L Magnesium (1.7-2.3) mg/dL ALT (7-56) units/L Troponin T (0.00-0.029) ng/mL NT-Pro-B Natriuret Pep (0-900) pg/mL Albumin (3.9-5) g/dL LDL Cholesterol Direct (50-130) mg/dL 10/09/18 Range/Units 04:08 WBC (4.5-11.0) K/mm3 Hgb (11.8-15.2) gm/dl Hct (35.5-45.6) % MCV (84-94) fl MCH (28-32) pg MCHC (32-34) % RDW (13.2-15.2) % Plt Count (140-440) K/mm3 Seg Neuts % (Manual) (40.0-70.0) % Lymphocytes % (Manual) (13.4-35.0) % Seg Neutrophils # Man (1.8-7.7) K/mm3 Lymphocytes # (Manual) (1.2-5.4) K/mm3 Monocytes # (Manual) (0.0-0.8) K/mm3 PT (12.2-14.9) Sec. INR (0.87-1.13) POC ABG pH (7.35-7.45) POC ABG pCO2 (35-45) POC ABG pO2 (80-105) Potassium (3.6-5.0) mmol/L Chloride 108.4 H (98-107) mmol/L Carbon Dioxide 16 L D (22-30) mmol/L BUN 26 H (9-20) mg/dL Creatinine 1.6 H (0.8-1.5) mg/dL Glucose 161 H (75-100) mg/dL Hemoglobin A1c (4-6) % Lactic Acid (0.7-2.0) mmol/L Magnesium (1.7-2.3) mg/dL ALT < 5 L (7-56) units/L Troponin T (0.00-0.029) ng/mL NT-Pro-B Natriuret Pep (0-900) pg/mL Albumin 2.5 L (3.9-5) g/dL LDL Cholesterol Direct (50-130) mg/dL - Imaging and Cardiology Chest x-ray: report reviewed, image reviewed (subtle right lung infiltrate) CT Scan - head: report reviewed, image reviewed (left frontoparietal encepha lomalacia, no acute findings.) Assessment and Plan Cultures: 10/08/2018 blood cultures: In progress A/P: 73-year-old male with metastatic prostate cancer status post bilateral nephrostomy tubes (as per his , these were recently exchanged, patient is on schedule for exchanges once a month), currently on chemotherapy through a PORT, residential resident, prior craniotomy and left frontotemporal encephalomalacia, seizure disorder, admitted following a seizure episode: #1 Sepsis probably secondary to right-sided pneumonia causing acute respiratory failure: Patient may have had an aspiration episode during or post seizure. Lactate on admission elevated. #2 Right-sided pneumonia: Patient apparently was at baseline state of health a day prior. Suspect aspiration. Multiple antibiotics could cause lowering of seizure threshold including carbapenems, cefepime, metronidazole. Hence, since he is a residential resident and start patient on IV Zosyn, renally adjusted. Continue vancomycin. #3 Acute kidney injury, present on admission: Renally dose antimicrobials #4 Acute encephalopathy, seizure disorder: Trying to minimize antibiotics that can lower seizure threshold. #5 Metastatic prostate cancer: on chemo, has PORT, has bilateral nephrostomy tubes. Recs: Discontinued meropenem Started IV Zosyn renally adjusted, continue IV vancomycin with close renal function monitoring follow-up blood cultures Monitor fever and WBC count MD [facility] C: [phone] O: [phone] F: [phone]
[2018-10-09] MEDS ORDERED: ZOSYN/NS 4.5GM/100ML 4.5 GM/100 ML VIAL IV ONE (16:19)
[2018-10-09] MEDS: ZOSYN/NS 4.5GM/100ML 4.5 GM/100 ML VIAL IV SCH (16:30)
[2018-10-09] MEDS: VANCOMYCIN 1,750 MG in NACL 0.9% 500 ML 500 ML IV SCH (18:05)
[2018-10-09] MEDS: KEPPRA 1,000 MG/NS 0.75% 100ML 1,000 MG/100 ML BAG IV SCH (21:44)
[2018-10-09 23:12] LABS: Bacteria,Urine 1+ /HPF (Negative); Bilirubin,Urine NEG (Negative); Blood,Urine SM (Negative); Color,Urine Amber (Yellow); Mucus,Urine 1+ /HPF; Urobilinogen,Urine < 2.0 mg/dL (<2.0)
[2018-10-10] MEDS: ZOSYN/NS 4.5GM/100ML 4.5 GM/100 ML VIAL IV SCH ×3 (00:26→15:36)
[2018-10-10] MEDS: SOLU-Medrol IV SCH ×3 (05:36→22:42)
[2018-10-10 05:53] LABS: Hematocrit 24.7 % (35.5-45.6); Hemoglobin 7.9 gm/dl (11.8-15.2); Mean Corpuscular HGB Conc 32 % (32-34); Mean Corpuscular Volume 79 fl (84-94); Platelet Count 299 K/mm3 (140-440); Red Blood Count 3.14 M/mm3 (3.65-5.03)
[2018-10-10 05:55] LABS: Red Cell Distribution Width 21.2 % (13.2-15.2)
[2018-10-10 06:23] LABS: Calcium 8.9 mg/dL (8.4-10.2)
[2018-10-10] MEDS: DUONEB *Not for PRN Use IH SCH ×4 (09:25→21:06)
--- NOTE | 2018-10-10 10:40 | Progress Note ---
Assessment and Plan Cultures: 10/08/2018 blood cultures: In progress A/P: 73-year-old male with metastatic prostate cancer status post bilateral nephrostomy tubes (as per his , these were recently exchanged, patient is on schedule for exchanges once a month), currently on chemotherapy through a PORT, retirement resident, prior craniotomy and left frontotemporal encephalomalacia, seizure disorder, admitted following a seizure episode: #1 Sepsis Improved. probably secondary to right-sided pneumonia causing acute respiratory failure: Patient may have had an aspiration episode during or post seizure. Lactate on admission elevated. #2 Right-sided pneumonia: Patient apparently was at baseline state of health a day prior. Suspect aspiration. Multiple antibiotics could cause lowering of seizure threshold including carbapenems, cefepime, metronidazole. Hence, since he is a retirement resident and start patient on IV Zosyn, renally adjusted. Continue vancomycin. #3 Acute kidney injury, present on admission: Renally dose antimicrobials #4 Acute encephalopathy, seizure disorder: Trying to minimize antibiotics that can lower seizure threshold. #5 Metastatic prostate cancer: on chemo, has PORT, has bilateral nephrostomy tubes. Recs: Continue IV Zosyn renally adjusted, continue IV vancomycin with close renal function monitoring follow-up blood cultures Monitor fever and WBC count [facility] M: [phone] O:[phone] Subjective Date of service: 10/10/18 Interval history: Patient seen and examined. Denied pain, SOB or fevers. Stated that he was feeling better today. Nurses notes, lab and reports reviewed, discussed with patient. Objective - Exam Narrative Exam: Constitutional: Sleepy, easily abusable, no acute distress Head, Ears, Nose: Normocephalic, atraumatic. External ears, nose normal Eyes: Conjunctivae/corneas clear. No icterus. No ptosis. Neck: Supple, no meningeal signs Oral: unable to examine Cardiovascular: S1, S2 normal. Respiratory: Good air entry, clear to auscultation bilaterally GI: Soft, non-tender; bowel sounds normal. No peritoneal signs Musculoskeletal: No pedal edema, no cyanosis. B/L Nephrostomy tubes + with dark urine Skin: No rash or abscess Hem/Lymphatic: No palpable cervical or supraclavicular nodes. No lymphangitis Psych: no agitation Neurological: drowsy, can be awakened, following simple commands. - Constitutional Vitals: Vital Signs Temp Pulse Resp BP Pulse Ox 97.7 F 59 L 17 130/90 98 10/10/18 08:32 10/10/18 09:26 10/10/18 09:26 10/10/18 08:32 10/10/18 09:26 Temperature -Last 24 Hours Temperature 97.7 F Temperature 98.2 F Temperature 97.9 F Temperature 99.2 F - Labs CBC & Chem 7: 10/10/18 05:20 10/10/18 05:20 Labs: Abnormal lab results 10/09/18 10/09/18 10/10/18 Range/Units 11:46 21:51 05:20 WBC 19.2 H (4.5-11.0) K/mm3 RBC 3.14 L (3.65-5.03) M/mm3 Hgb 7.9 L (11.8-15.2) gm/dl Hct 24.7 L D (35.5-45.6) % MCV 79 L (84-94) fl MCH 25 L (28-32) pg RDW 21.2 H (13.2-15.2) % Potassium (3.6-5.0) mmol/L Chloride (98-107) mmol/L Carbon Dioxide (22-30) mmol/L BUN (9-20) mg/dL Glucose (75-100) mg/dL Lactic Acid (0.7-2.0) mmol/L Troponin T 0.033 H D (0.00-0.029) ng/mL Urine WBC (Auto) 57.0 H (0.0-6.0) /HPF 10/10/18 10/10/18 Range/Units 05:20 05:20 WBC (4.5-11.0) K/mm3 RBC (3.65-5.03) M/mm3 Hgb (11.8-15.2) gm/dl Hct (35.5-45.6) % MCV (84-94) fl MCH (28-32) pg RDW (13.2-15.2) % Potassium 3.1 L D (3.6-5.0) mmol/L Chloride 109.4 H (98-107) mmol/L Carbon Dioxide 21 L (22-30) mmol/L BUN 37 H (9-20) mg/dL Glucose 134 H (75-100) mg/dL Lactic Acid 2.20 H* (0.7-2.0) mmol/L Troponin T (0.00-0.029) ng/mL Urine WBC (Auto) (0.0-6.0) /HPF
[2018-10-10] MEDS: KEPPRA 1,000 MG/NS 0.75% 100ML 1,000 MG/100 ML BAG IV SCH ×2 (11:27→22:42)
[2018-10-10] MEDS: SODIUM CHLORIDE FLUSH SYRINGE 10 ML IV SCH ×2 (11:28→22:43)
--- NOTE | 2018-10-10 12:01 | Progress Note ---
Addendum entered and electronically signed by OSEI FLOYD MD 10/10/18 17:03: Conservative cardiac medical therapy. 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 currently in sinus rhythm. Conservative cardiac management. Subjective Date of service: 10/10/18 Interval history: Patient is resting in bed comfortably. He has no cardiac complaints. Objective Vital Signs Temp Pulse Pulse Resp Resp BP BP 10/10/18 09:26 59 L 17 10/10/18 08:32 97.7 F 81 16 130/90 10/10/18 08:00 57 L 18 10/10/18 04:40 98.2 F 92 H 17 109/69 10/10/18 04:21 77 11 L 98/75 10/10/18 04:11 74 19 98/75 10/10/18 04:01 78 15 98/75 10/10/18 04:00 97 H 10/10/18 03:51 70 21 98/75 10/10/18 03:41 73 13 10/10/18 03:31 78 18 10/10/18 03:21 79 20 10/10/18 03:15 10/10/18 01:19 84 19 10/10/18 01:09 87 23 10/10/18 00:51 97.9 F 74 17 98/52 10/09/18 22:30 99.2 F 73 10 L 101/67 10/09/18 22:01 81 13 98/75 10/09/18 21:51 83 12 98/75 10/09/18 21:43 79 13 98/75 10/09/18 21:31 73 10 L 104/65 10/09/18 21:15 77 15 116/70 10/09/18 21:01 81 13 120/81 10/09/18 20:45 87 16 120/81 10/09/18 20:31 83 16 106/71 01/16/19 20:15 80 15 108/69 10/09/18 20:01 91 H 14 110/68 10/09/18 19:45 82 14 110/68 10/09/18 19:31 81 21 111/77 10/09/18 19:15 82 19 125/77 10/09/18 19:01 81 12 120/71 10/09/18 17:45 80 14 113/79 10/09/18 17:31 81 13 99/63 10/09/18 17:15 85 18 99/63 10/09/18 15:31 84 24 118/82 10/09/18 15:15 90 13 110/82 10/09/18 15:01 95 H 17 93/66 10/09/18 14:45 96 H 18 103/73 10/09/18 14:31 101 H 18 93/66 10/09/18 14:15 95 H 16 109/67 10/09/18 14:01 98 H 16 106/79 10/09/18 13:45 96 H 17 112/74 10/09/18 13:30 96 H 16 106/79 10/09/18 13:15 97 H 16 114/75 10/09/18 13:01 96 H 17 104/71 10/09/18 12:50 93 H 28 H 10/09/18 12:48 93 H 28 H 104/71 10/09/18 12:45 91 H 15 104/71 10/09/18 12:31 90 14 109/74 10/09/18 12:15 91 H 16 102/74 10/09/18 12:01 90 16 111/73 Pulse Ox 10/10/18 09:26 98 10/10/18 08:32 95 10/10/18 08:00 10/10/18 04:40 98 10/10/18 04:21 100 10/10/18 04:11 100 10/10/18 04:01 100 10/10/18 04:00 10/10/18 03:51 100 10/10/18 03:41 100 10/10/18 03:31 98 10/10/18 03:21 100 10/10/18 03:15 99 10/10/18 01:19 10/10/18 01:09 10/10/18 00:51 100 10/09/18 22:30 100 10/09/18 22:01 98 10/09/18 21:51 99 10/09/18 21:43 10/09/18 21:31 100 10/09/18 21:15 98 10/09/18 21:01 98 10/09/18 20:45 99 10/09/18 20:31 95 10/09/18 20:15 99 10/09/18 20:01 99 10/09/18 19:45 98 10/09/18 19:31 99 10/09/18 19:15 96 10/09/18 19:01 98 10/09/18 17:45 100 10/09/18 17:31 100 10/09/18 17:15 10/09/18 15:31 99 10/09/18 15:15 10/09/18 15:01 100 10/09/18 14:45 100 10/09/18 14:31 100 10/09/18 14:15 10/09/18 14:01 100 10/09/18 13:45 99 10/09/18 13:30 100 10/09/18 13:15 100 10/09/18 13:01 99 10/09/18 12:50 10/09/18 12:48 99 10/09/18 12:45 99 10/09/18 12:31 10/09/18 12:15 100 10/09/18 12:01 - Physical Examination General: No Apparent Distress HEENT: Positive: PERRL Neck: Positive: trachea midline Cardiac: Positive: Reg Rate and Rhythm Lungs: Positive: Decreased Breath Sounds Extremities: Absent: edema - Labs and Meds CBC 10/10/18 Range/Units 05:20 WBC 19.2 H (4.5-11.0) K/mm3 RBC 3.14 L (3.65-5.03) M/mm3 Hgb 7.9 L (11.8-15.2) gm/dl Hct 24.7 L D (35.5-45.6) % Plt Count 299 (140-440) K/mm3 Comprehensive Metabolic Panel 10/10/18 Range/Units 05:20 Sodium 145 (137-145) mmol/L Potassium 3.1 L D (3.6-5.0) mmol/L Chloride 109.4 H (98-107) mmol/L Carbon Dioxide 21 L (22-30) mmol/L BUN 37 H (9-20) mg/dL Creatinine 1.5 (0.8-1.5) mg/dL Glucose 134 H (75-100) mg/dL Calcium 8.9 (8.4-10.2) mg/dL
--- NOTE | 2018-10-10 15:20 | Progress Note ---
Assessment and Plan Assessment and plan: Breakthrough seizures. Patient on keppra. at bedside tells me patient was on 1000mg bid and dose decreased to 500mg bid few month ago. Increased Keppra to 1000mg bid Acute resp failure continue BIPAP Pneumonia right lower lobe sepsis due to pneumonia. Started on iv Abx ID Physician following history of metastatic prostate cancer COPD History of afib Not on anticoagulation leukocytosis GEO. Nephrology consulted Full code status History Interval history: patient had seizure at [facility], brought to ED Now awake,alert Hospitalist Physical - Physical exam Narrative exam: GEN: Not in acute distress,lying in bed, obese HEENT: Normocephalic, atraumatic, Neck: supple, No JVD Lungs: Clear to auscultation, no wheeze Heart:S1 and S2 regular, no murmurs, rubs or gallop, Abd:soft, non tender, non distended, normal bowel sounds Ext: No edema, no clubbing or cyanosis Neuro: AAO x 3, moves all ext - Constitutional Vitals: Temp Pulse Resp BP Pulse Ox 97.7 F 60 18 130/90 98 10/10/18 08:32 10/10/18 14:18 10/10/18 14:18 10/10/18 08:32 10/10/18 09:26 General appearance: Present: other (Unresponsive) Results - Labs CBC & Chem 7: 10/11/18 06:54 10/11/18 06:54 Labs: Laboratory Last Values WBC 19.2 K/mm3 (4.5-11.0) H 10/10/18 05:20 RBC 3.14 M/mm3 (3.65-5.03) L 10/10/18 05:20 Hgb 7.9 gm/dl (11.8-15.2) L 10/10/18 05:20 Hct 24.7 % (35.5-45.6) L D 10/10/18 05:20 MCV 79 fl (84-94) L 10/10/18 05:20 MCH 25 pg (28-32) L 10/10/18 05:20 MCHC 32 % (32-34) 10/10/18 05:20 RDW 21.2 % (13.2-15.2) H 10/10/18 05:20 Plt Count 299 K/mm3 (140-440) 10/10/18 05:20 Lymph % (Auto) Supervisor Blasting 10/08/18 14:50 [place] % (Auto) Supervisor Blasting 10/08/18 14:50 Eos % (Auto) Supervisor Blasting 10/08/18 14:50 Baso % (Auto) Supervisor Blasting 10/08/18 14:50 Lymph # Supervisor Blasting 10/08/18 14:50 [place] # Supervisor Blasting 10/08/18 14:50 Eos # Supervisor Blasting 10/08/18 14:50 Baso # Supervisor Blasting 10/08/18 14:50 Add Manual Diff Complete 10/09/18 04:08 Total Counted 100 10/09/18 04:08 Seg Neutrophils % Supervisor Blasting 10/09/18 04:08 Seg Neuts % (Manual) 84.0 % (40.0-70.0) H 10/09/18 04:08 Band Neutrophils % 11.0 % 10/09/18 04:08 Lymphocytes % (Manual) 2.0 % (13.4-35.0) L 10/09/18 04:08 Reactive Lymphs % (Man) 0 % 10/09/18 04:08 Monocytes % (Manual) 3.0 % (0.0-7.3) 10/09/18 04:08 Eosinophils % (Manual) 0 % (0.0-4.3) 10/09/18 04:08 Basophils % (Manual) 0 % (0.0-1.8) 10/09/18 04:08 Metamyelocytes % 0 % 10/09/18 04:08 Myelocytes % 0 % 10/09/18 04:08 Promyelocytes % 0 % 10/09/18 04:08 Blast Cells % 0 % 10/09/18 04:08 Nucleated RBC % Not Reportable 10/09/18 04:08 Seg Neutrophils # Supervisor Blasting 10/08/18 14:50 Seg Neutrophils # Man 19.0 K/mm3 (1.8-7.7) H 10/09/18 04:08 Band Neutrophils # 2.5 K/mm3 10/09/18 04:08 Lymphocytes # (Manual) 0.5 K/mm3 (1.2-5.4) L 10/09/18 04:08 Abs React Lymphs (Man) 0.0 K/mm3 10/09/18 04:08 Monocytes # (Manual) 0.7 K/mm3 (0.0-0.8) 10/09/18 04:08 Eosinophils # (Manual) 0.0 K/mm3 (0.0-0.4) 10/09/18 04:08 Basophils # (Manual) 0.0 K/mm3 (0.0-0.1) 10/09/18 04:08 Metamyelocytes # 0.0 K/mm3 10/09/18 04:08 Myelocytes # 0.0 K/mm3 10/09/18 04:08 Promyelocytes # 0.0 K/mm3 10/09/18 04:08 Blast Cells # 0.0 K/mm3 10/09/18 04:08 WBC Morphology Not Reportable 10/09/18 04:08 Hypersegmented Neuts Not Reportable 10/09/18 04:08 Hyposegmented Neuts Not Reportable 10/09/18 04:08 Hypogranular Neuts Not Reportable 10/09/18 04:08 Smudge Cells Not Reportable 10/09/18 04:08 Toxic Granulation Not Reportable 10/09/18 04:08 Toxic Vacuolation Not Reportable 10/09/18 04:08 Dohle Bodies Not Reportable 10/09/18 04:08 Pelger-Huet Anomaly Not Reportable 10/09/18 04:08 Sydnee Rods Not Reportable 10/09/18 04:08 Platelet Estimate Appears normal 10/09/18 04:08 Clumped Platelets Not Reportable 10/09/18 04:08 Plt Clumps, EDTA Not Reportable 10/09/18 04:08 Large Platelets Few 10/09/18 04:08 Giant Platelets Rare 10/09/18 04:08 Platelet Satelliting Not Reportable 10/09/18 04:08 Plt Morphology Comment Not Reportable 10/09/18 04:08 RBC Morphology Not Reportable 10/09/18 04:08 Dimorphic RBCs Not Reportable 10/09/18 04:08 Polychromasia Not Reportable 10/09/18 04:08 Hypochromasia Not Reportable 10/09/18 04:08 Poikilocytosis Not Reportable 10/09/18 04:08 Anisocytosis 1+ 10/09/18 04:08 Microcytosis 1+ 10/09/18 04:08 Macrocytosis Not Reportable 10/09/18 04:08 Spherocytes Not Reportable 10/09/18 04:08 Pappenheimer Bodies Not Reportable 10/09/18 04:08 Sickle Cells Not Reportable 10/09/18 04:08 Target Cells Rare 10/09/18 04:08 Tear Drop Cells Few 10/09/18 04:08 Ovalocytes 1+ 10/09/18 04:08 Stomatocytes Few 10/09/18 04:08 Helmet Cells Not Reportable 10/09/18 04:08 Fung-[place] Bodies Not Reportable 10/09/18 04:08 [place] Rings Not Reportable 10/09/18 04:08 Bubba Cells Few 10/09/18 04:08 Bite Cells Not Reportable 10/09/18 04:08 Crenated Cell Not Reportable 10/09/18 04:08 Elliptocytes Few 10/09/18 04:08 Acanthocytes (Spur) Not Reportable 10/09/18 04:08 Rouleaux Not Reportable 10/09/18 04:08 Hemoglobin C Crystals Not Reportable 10/09/18 04:08 Schistocytes Not Reportable 10/09/18 04:08 Malaria parasites Not Reportable 10/09/18 04:08 Jose Luis Bodies Not Reportable 10/09/18 04:08 Hem Pathologist Commnt No 10/09/18 04:08 PT 15.3 Sec. (12.2-14.9) H 10/08/18 14:50 INR 1.17 (0.87-1.13) H 10/08/18 14:50 APTT 31.5 Sec. (24.2-36.6) 10/08/18 14:50 Thrombin Time 19.0 Sec. (15.1-19.6) 10/08/18 14:50 POC ABG pH 7.433 (7.35-7.45) 10/08/18 18:38 POC ABG pCO2 28.7 (35-45) L 10/08/18 18:38 POC ABG pO2 219 (80-105) H 10/08/18 18:38 POC ABG HCO3 19.2 10/08/18 18:38 POC ABG Total CO2 20 10/08/18 18:38 POC ABG O2 Sat 100 10/08/18 18:38 POC ABG Base Excess -5 10/08/18 18:38 FiO2 60 % 10/08/18 18:38 Sodium 145 mmol/L (137-145) 10/10/18 05:20 Potassium 3.1 mmol/L (3.6-5.0) L D 10/10/18 05:20 Chloride 109.4 mmol/L (98-107) H 10/10/18 05:20 Carbon Dioxide 21 mmol/L (22-30) L 10/10/18 05:20 Anion Gap 18 mmol/L 10/10/18 05:20 BUN 37 mg/dL (9-20) H 10/10/18 05:20 Creatinine 1.5 mg/dL (0.8-1.5) 10/10/18 05:20 Estimated GFR 56 ml/min 10/10/18 05:20 BUN/Creatinine Ratio 25 % 10/10/18 05:20 Glucose 134 mg/dL (75-100) H 10/10/18 05:20 Hemoglobin A1c 6.1 % (4-6) H 10/08/18 14:50 Lactic Acid 1.30 mmol/L (0.7-2.0) 10/10/18 07:34 Calcium 8.9 mg/dL (8.4-10.2) 10/10/18 05:20 Magnesium 1.40 mg/dL (1.7-2.3) L 10/08/18 14:50 Total Bilirubin 0.70 mg/dL (0.1-1.2) 10/09/18 04:08 Direct Bilirubin < 0.2 mg/dL (0-0.2) 10/08/18 14:50 Indirect Bilirubin 0.7 mg/dL 10/08/18 14:50 AST 13 units/L (5-40) 10/09/18 04:08 ALT < 5 units/L (7-56) L 10/09/18 04:08 Alkaline Phosphatase 58 units/L (35-129) 10/09/18 04:08 Ammonia 55.0 umol/L (25-60) 10/08/18 14:50 Troponin T 0.033 ng/mL (0.00-0.029) H D 10/09/18 11:46 NT-Pro-B Natriuret Pep 3870 pg/mL (0-900) H 10/08/18 14:50 Total Protein 6.9 g/dL (6.3-8.2) 10/09/18 04:08 Albumin 2.5 g/dL (3.9-5) L 10/09/18 04:08 Albumin/Globulin Ratio 0.6 % 10/09/18 04:08 Triglycerides 94 mg/dL (2-149) 10/08/18 14:50 Cholesterol 199 mg/dL (50-199) 10/08/18 14:50 LDL Cholesterol Direct 143 mg/dL (50-130) H 10/08/18 14:50 HDL Cholesterol 48 mg/dL (40-59) 10/08/18 14:50 Cholesterol/HDL Ratio 4.14 % 10/08/18 14:50 Urine Color [place] (Yellow) 10/09/18 21:51 Urine Turbidity Cloudy (Clear) 10/09/18 21:51 Urine pH 5.0 (5.0-7.0) 10/09/18 21:51 Ur Specific [place] 1.020 (1.003-1.030) 10/09/18 21:51 Urine Protein 100 mg/dl mg/dL (Negative) 10/09/18 21:51 Urine Glucose (UA) Neg mg/dL (Negative) 10/09/18 21:51 Urine Ketones Neg mg/dL (Negative) 10/09/18 21:51 Urine Blood Sm (Negative) 10/09/18 21:51 Urine Nitrite Neg (Negative) 10/09/18 21:51 Urine Bilirubin Neg (Negative) 10/09/18 21:51 Urine Urobilinogen < 2.0 mg/dL (<2.0) 10/09/18 21:51 Ur Leukocyte Esterase Sm (Negative) 10/09/18 21:51 Urine WBC (Auto) 57.0 /HPF (0.0-6.0) H 10/09/18 21:51 Urine RBC (Auto) 24.0 /HPF (0.0-6.0) 10/09/18 21:51 U Epithel Cells (Auto) < 1.0 /HPF (0-13.0) 10/09/18 21:51 Urine Bacteria (Auto) 1+ /HPF (Negative) 10/09/18 21:51 Urine Mucus 1+ /HPF 10/09/18 21:51 Urine Yeast (Budding) 3+ /HPF 10/09/18 21:51
[2018-10-10] MEDS ORDERED: K-DUR PO ONE (18:40)
[2018-10-10] MEDS: VANCOMYCIN 1,750 MG in NACL 0.9% 500 ML 500 ML IV SCH (18:54)
[2018-10-11] MEDS: ZOSYN/NS 4.5GM/100ML 4.5 GM/100 ML VIAL IV SCH ×2 (00:48→09:31)
[2018-10-11] MEDS: SOLU-Medrol IV SCH ×2 (06:39→14:41)
[2018-10-11 07:23] LABS: Hematocrit 23.7 % (35.5-45.6); Hemoglobin 7.5 gm/dl (11.8-15.2); Mean Corpuscular HGB Conc 32 % (32-34); Mean Corpuscular Volume 78 fl (84-94); Platelet Count 278 K/mm3 (140-440); Red Blood Count 3.02 M/mm3 (3.65-5.03)
[2018-10-11 07:45] LABS: BUN/Creatinine Ratio 25; Blood Urea Nitrogen 33 mg/dL (9-20); Calcium 9.2 mg/dL (8.4-10.2); Hemolysis Index 1
[2018-10-11] MEDS: DUONEB *Not for PRN Use IH SCH ×2 (08:46→13:57)
--- NOTE | 2018-10-11 09:21 | Progress Note ---
Hospitalist Physical - Constitutional Vitals: Temp Pulse Resp BP Pulse Ox 98.0 F 61 18 137/83 98 10/11/18 05:02 10/11/18 05:02 10/11/18 05:02 10/11/18 05:02 10/11/18 05:02 General appearance: Present: other (Unresponsive) Results - Labs CBC & Chem 7: 10/11/18 06:54 10/11/18 06:54 Labs: Laboratory Last Values WBC 12.3 K/mm3 (4.5-11.0) H 10/11/18 06:54 RBC 3.02 M/mm3 (3.65-5.03) L 10/11/18 06:54 Hgb 7.5 gm/dl (11.8-15.2) L 10/11/18 06:54 Hct 23.7 % (35.5-45.6) L 10/11/18 06:54 MCV 78 fl (84-94) L 10/11/18 06:54 MCH 25 pg (28-32) L 10/11/18 06:54 MCHC 32 % (32-34) 10/11/18 06:54 RDW 21.0 % (13.2-15.2) H 10/11/18 06:54 Plt Count 278 K/mm3 (140-440) 10/11/18 06:54 Lymph % (Auto) Language Specialist 10/08/18 14:50 [place] % (Auto) Language Specialist 10/08/18 14:50 Eos % (Auto) Language Specialist 10/08/18 14:50 Baso % (Auto) Language Specialist 10/08/18 14:50 Lymph # Language Specialist 10/08/18 14:50 [place] # Language Specialist 10/08/18 14:50 Eos # Language Specialist 10/08/18 14:50 Baso # Language Specialist 10/08/18 14:50 Add Manual Diff Complete 10/09/18 04:08 Total Counted 100 10/09/18 04:08 Seg Neutrophils % Language Specialist 10/09/18 04:08 Seg Neuts % (Manual) 84.0 % (40.0-70.0) H 10/09/18 04:08 Band Neutrophils % 11.0 % 10/09/18 04:08 Lymphocytes % (Manual) 2.0 % (13.4-35.0) L 10/09/18 04:08 Reactive Lymphs % (Man) 0 % 10/09/18 04:08 Monocytes % (Manual) 3.0 % (0.0-7.3) 10/09/18 04:08 Eosinophils % (Manual) 0 % (0.0-4.3) 10/09/18 04:08 Basophils % (Manual) 0 % (0.0-1.8) 10/09/18 04:08 Metamyelocytes % 0 % 10/09/18 04:08 Myelocytes % 0 % 10/09/18 04:08 Promyelocytes % 0 % 10/09/18 04:08 Blast Cells % 0 % 10/09/18 04:08 Nucleated RBC % Not Reportable 10/09/18 04:08 Seg Neutrophils # Language Specialist 10/08/18 14:50 Seg Neutrophils # Man 19.0 K/mm3 (1.8-7.7) H 10/09/18 04:08 Band Neutrophils # 2.5 K/mm3 10/09/18 04:08 Lymphocytes # (Manual) 0.5 K/mm3 (1.2-5.4) L 10/09/18 04:08 Abs React Lymphs (Man) 0.0 K/mm3 10/09/18 04:08 Monocytes # (Manual) 0.7 K/mm3 (0.0-0.8) 10/09/18 04:08 Eosinophils # (Manual) 0.0 K/mm3 (0.0-0.4) 10/09/18 04:08 Basophils # (Manual) 0.0 K/mm3 (0.0-0.1) 10/09/18 04:08 Metamyelocytes # 0.0 K/mm3 10/09/18 04:08 Myelocytes # 0.0 K/mm3 10/09/18 04:08 Promyelocytes # 0.0 K/mm3 10/09/18 04:08 Blast Cells # 0.0 K/mm3 10/09/18 04:08 WBC Morphology Not Reportable 10/09/18 04:08 Hypersegmented Neuts Not Reportable 10/09/18 04:08 Hyposegmented Neuts Not Reportable 10/09/18 04:08 Hypogranular Neuts Not Reportable 10/09/18 04:08 Smudge Cells Not Reportable 10/09/18 04:08 Toxic Granulation Not Reportable 10/09/18 04:08 Toxic Vacuolation Not Reportable 10/09/18 04:08 Dohle Bodies Not Reportable 10/09/18 04:08 Pelger-Huet Anomaly Not Reportable 10/09/18 04:08 Sydnee Rods Not Reportable 10/09/18 04:08 Platelet Estimate Appears normal 10/09/18 04:08 Clumped Platelets Not Reportable 10/09/18 04:08 Plt Clumps, EDTA Not Reportable 10/09/18 04:08 Large Platelets Few 10/09/18 04:08 Giant Platelets Rare 10/09/18 04:08 Platelet Satelliting Not Reportable 10/09/18 04:08 Plt Morphology Comment Not Reportable 10/09/18 04:08 RBC Morphology Not Reportable 10/09/18 04:08 Dimorphic RBCs Not Reportable 10/09/18 04:08 Polychromasia Not Reportable 10/09/18 04:08 Hypochromasia Not Reportable 10/09/18 04:08 Poikilocytosis Not Reportable 10/09/18 04:08 Anisocytosis 1+ 10/09/18 04:08 Microcytosis 1+ 10/09/18 04:08 Macrocytosis Not Reportable 10/09/18 04:08 Spherocytes Not Reportable 10/09/18 04:08 Pappenheimer Bodies Not Reportable 10/09/18 04:08 Sickle Cells Not Reportable 10/09/18 04:08 Target Cells Rare 10/09/18 04:08 Tear Drop Cells Few 10/09/18 04:08 Ovalocytes 1+ 10/09/18 04:08 Stomatocytes Few 10/09/18 04:08 Helmet Cells Not Reportable 10/09/18 04:08 Fung-[place] Bodies Not Reportable 10/09/18 04:08 [place] Rings Not Reportable 10/09/18 04:08 Bubba Cells Few 10/09/18 04:08 Bite Cells Not Reportable 10/09/18 04:08 Crenated Cell Not Reportable 10/09/18 04:08 Elliptocytes Few 10/09/18 04:08 Acanthocytes (Spur) Not Reportable 10/09/18 04:08 Rouleaux Not Reportable 10/09/18 04:08 Hemoglobin C Crystals Not Reportable 10/09/18 04:08 Schistocytes Not Reportable 10/09/18 04:08 Malaria parasites Not Reportable 10/09/18 04:08 [place] Bodies Not Reportable 10/09/18 04:08 Hem Pathologist Commnt No 10/09/18 04:08 PT 15.3 Sec. (12.2-14.9) H 10/08/18 14:50 INR 1.17 (0.87-1.13) H 10/08/18 14:50 APTT 31.5 Sec. (24.2-36.6) 10/08/18 14:50 Thrombin Time 19.0 Sec. (15.1-19.6) 10/08/18 14:50 POC ABG pH 7.433 (7.35-7.45) 10/08/18 18:38 POC ABG pCO2 28.7 (35-45) L 10/08/18 18:38 POC ABG pO2 219 (80-105) H 10/08/18 18:38 POC ABG HCO3 19.2 10/08/18 18:38 POC ABG Total CO2 20 10/08/18 18:38 POC ABG O2 Sat 100 10/08/18 18:38 POC ABG Base Excess -5 10/08/18 18:38 FiO2 60 % 10/08/18 18:38 Sodium 146 mmol/L (137-145) H 10/11/18 06:54 Potassium 3.8 mmol/L (3.6-5.0) D 10/11/18 06:54 Chloride 112.3 mmol/L (98-107) H 10/11/18 06:54 Carbon Dioxide 21 mmol/L (22-30) L 10/11/18 06:54 Anion Gap 17 mmol/L 10/11/18 06:54 BUN 33 mg/dL (9-20) H 10/11/18 06:54 Creatinine 1.3 mg/dL (0.8-1.5) 10/11/18 06:54 Estimated GFR > 60 ml/min 10/11/18 06:54 BUN/Creatinine Ratio 25 % 10/11/18 06:54 Glucose 108 mg/dL (75-100) H 10/11/18 06:54 Hemoglobin A1c 6.1 % (4-6) H 10/08/18 14:50 Lactic Acid 1.30 mmol/L (0.7-2.0) 10/10/18 07:34 Calcium 9.2 mg/dL (8.4-10.2) 10/11/18 06:54 Magnesium 1.40 mg/dL (1.7-2.3) L 10/08/18 14:50 Total Bilirubin 0.70 mg/dL (0.1-1.2) 10/09/18 04:08 Direct Bilirubin < 0.2 mg/dL (0-0.2) 10/08/18 14:50 Indirect Bilirubin 0.7 mg/dL 10/08/18 14:50 AST 13 units/L (5-40) 10/09/18 04:08 ALT < 5 units/L (7-56) L 10/09/18 04:08 Alkaline Phosphatase 58 units/L (35-129) 10/09/18 04:08 Ammonia 55.0 umol/L (25-60) 10/08/18 14:50 Troponin T 0.033 ng/mL (0.00-0.029) H D 10/09/18 11:46 NT-Pro-B Natriuret Pep 3870 pg/mL (0-900) H 10/08/18 14:50 Total Protein 6.9 g/dL (6.3-8.2) 10/09/18 04:08 Albumin 2.5 g/dL (3.9-5) L 10/09/18 04:08 Albumin/Globulin Ratio 0.6 % 10/09/18 04:08 Triglycerides 94 mg/dL (2-149) 10/08/18 14:50 Cholesterol 199 mg/dL (50-199) 10/08/18 14:50 LDL Cholesterol Direct 143 mg/dL (50-130) H 10/08/18 14:50 HDL Cholesterol 48 mg/dL (40-59) 10/08/18 14:50 Cholesterol/HDL Ratio 4.14 % 10/08/18 14:50 Urine Color [place] (Yellow) 10/09/18 21:51 Urine Turbidity Cloudy (Clear) 10/09/18 21:51 Urine pH 5.0 (5.0-7.0) 10/09/18 21:51 Ur Specific [place] 1.020 (1.003-1.030) 10/09/18 21:51 Urine Protein 100 mg/dl mg/dL (Negative) 10/09/18 21:51 Urine Glucose (UA) Neg mg/dL (Negative) 10/09/18 21:51 Urine Ketones Neg mg/dL (Negative) 10/09/18 21:51 Urine Blood Sm (Negative) 10/09/18 21:51 Urine Nitrite Neg (Negative) 10/09/18 21:51 Urine Bilirubin Neg (Negative) 10/09/18 21:51 Urine Urobilinogen < 2.0 mg/dL (<2.0) 10/09/18 21:51 Ur Leukocyte Esterase Sm (Negative) 10/09/18 21:51 Urine WBC (Auto) 57.0 /HPF (0.0-6.0) H 10/09/18 21:51 Urine RBC (Auto) 24.0 /HPF (0.0-6.0) 10/09/18 21:51 U Epithel Cells (Auto) < 1.0 /HPF (0-13.0) 10/09/18 21:51 Urine Bacteria (Auto) 1+ /HPF (Negative) 10/09/18 21:51 Urine Mucus 1+ /HPF 10/09/18 21:51 Urine Yeast (Budding) 3+ /HPF 10/09/18 21:51
--- NOTE | 2018-10-11 09:41 | Progress Note ---
Assessment and Plan Cultures: 10/08/2018 blood cultures: no growth to date A/P: 73-year-old male with metastatic prostate cancer status post bilateral nephrostomy tubes (as per his , these were recently exchanged, patient is on schedule for exchanges once a month), currently on chemotherapy through a PORT, care home resident, prior craniotomy and left frontotemporal encephalomalacia, seizure disorder, admitted following a seizure episode: #1 Sepsis Resolved, probably secondary to right-sided pneumonia causing acute respiratory failure: Patient may have had an aspiration episode during or post seizure. Lactate on admission elevated. #2 Right-sided pneumonia: Patient apparently was at baseline state of health a day prior. Suspect aspiration. Multiple antibiotics could cause lowering of seizure threshold including carbapenems, cefepime, metronidazole. Hence, since he is a care home resident and start patient on IV Zosyn, renally adjusted. Continue vancomycin. #3 Acute kidney injury, Resolved. present on admission: Renally dose antimicrobials #4 Acute encephalopathy, seizure disorder: Trying to minimize antibiotics that can lower seizure threshold. #5 Metastatic prostate cancer: on chemo, has PORT, has bilateral nephrostomy tubes. Recs: Continue IV Zosyn renally adjusted, D3 continue IV vancomycin, D4 follow-up blood cultures Discharge on PO Augmentin 875 BID , Linezolid 600 mg BID for total 5 days Case management to assist with cost [facility] [employer] M: [phone] O:[phone] Subjective Date of service: 10/11/18 Interval history: Patient seen and examined. Denied pain, SOB or fevers. Stated that he was feeling better today. Family at bedside. Nurses notes, lab and reports reviewed, discussed with patient. Objective - Exam Narrative Exam: Constitutional: awake, alert no acute distress Head, Ears, Nose: Normocephalic, atraumatic. External ears, nose normal Eyes: Conjunctivae/corneas clear. No icterus. No ptosis. Neck: Supple, no meningeal signs Oral: Dentition good, no thrush Cardiovascular: S1, S2 normal. Respiratory: Good air entry, clear to auscultation bilaterally GI: Soft, non-tender; bowel sounds normal. No peritoneal signs Musculoskeletal: No pedal edema, no cyanosis. B/L Nephrostomy tubes + with dark urine Skin: No rash or abscess Hem/Lymphatic: No palpable cervical or supraclavicular nodes. No lymphangitis Psych: no agitation Neurological: drowsy, can be awakened, following simple commands. - Constitutional Vitals: Vital Signs Temp Pulse Resp BP Pulse Ox 98.0 F 61 18 137/83 98 10/11/18 05:02 10/11/18 05:02 10/11/18 05:02 10/11/18 05:02 10/11/18 05:02 Temperature -Last 24 Hours Temperature 98.0 F Temperature 98.0 F Temperature 97.0 F Temperature 97.8 F - Labs CBC & Chem 7: 10/11/18 06:54 10/11/18 06:54 Labs: Abnormal lab results 10/11/18 10/11/18 Range/Units 06:54 06:54 WBC 12.3 H (4.5-11.0) K/mm3 RBC 3.02 L (3.65-5.03) M/mm3 Hgb 7.5 L (11.8-15.2) gm/dl Hct 23.7 L (35.5-45.6) % MCV 78 L (84-94) fl MCH 25 L (28-32) pg RDW 21.0 H (13.2-15.2) % Sodium 146 H (137-145) mmol/L Chloride 112.3 H (98-107) mmol/L Carbon Dioxide 21 L (22-30) mmol/L BUN 33 H (9-20) mg/dL Glucose 108 H (75-100) mg/dL
[2018-10-11] MEDS ORDERED: KEPPRA PO SCH (10:00)
--- NOTE | 2018-10-11 10:03 | Progress Note ---
Addendum entered and electronically signed by OSEI FLOYD MD 10/11/18 11:05: Conservative cardiac management, will follow intermittently. 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 currently in sinus rhythm. Conservative cardiac management. We will follow intermittently. Subjective Date of service: 10/11/18 Interval history: Patient is resting in bed comfortably. He has no cardiac complaints. Objective Vital Signs Temp Pulse Pulse Resp Resp BP Pulse Ox 10/11/18 05:02 98.0 F 61 18 137/83 98 10/11/18 00:01 98.0 F 44 L 18 126/88 97 10/10/18 22:00 70 10/10/18 21:20 66 18 10/10/18 20:00 64 18 10/10/18 19:53 97.0 F L 60 20 117/97 98 10/10/18 16:41 64 19 10/10/18 16:00 61 19 10/10/18 14:18 60 18 10/10/18 12:49 97.8 F 87 16 121/74 96 10/10/18 12:00 61 19 - Physical Examination General: No Apparent Distress HEENT: Positive: PERRL Neck: Positive: trachea midline Cardiac: Positive: Reg Rate and Rhythm Lungs: Positive: Decreased Breath Sounds Extremities: Absent: edema - Labs and Meds CBC 10/11/18 Range/Units 06:54 WBC 12.3 H (4.5-11.0) K/mm3 RBC 3.02 L (3.65-5.03) M/mm3 Hgb 7.5 L (11.8-15.2) gm/dl Hct 23.7 L (35.5-45.6) % Plt Count 278 (140-440) K/mm3 Comprehensive Metabolic Panel 10/11/18 Range/Units 06:54 Sodium 146 H (137-145) mmol/L Potassium 3.8 D (3.6-5.0) mmol/L Chloride 112.3 H (98-107) mmol/L Carbon Dioxide 21 L (22-30) mmol/L BUN 33 H (9-20) mg/dL Creatinine 1.3 (0.8-1.5) mg/dL Glucose 108 H (75-100) mg/dL Calcium 9.2 (8.4-10.2) mg/dL
[2018-10-11] MEDS: SODIUM CHLORIDE FLUSH SYRINGE 10 ML IV SCH (10:15)
[2018-10-11 12:06] VITALS: BP 120/79
--- NOTE | 2018-10-11 14:20 | Discharge Summary ---
Providers - Providers Date of Admission: 10/08/18 16:09 Date of discharge: 10/11/18 Attending physician: GERRI FONTAINE 10/08/18 21:58 Consult to Physician [CONS] Routine Comment: Consulting Provider: ASHLI ARANDA Physician Instructions: Reason For Exam: chf 10/08/18 22:12 Consult to Physician [CONS] Routine Comment: Consulting Provider: BRIE VASQUEZ Physician Instructions: Reason For Exam: Sepsis Primary care physician: FUR COAT SEWER Hospitalization Condition: Stable Hospital course: patient is 73 yo presented with seizures, Oxygen desaturation. He was evaluated in Emergency Department. Breakthrough seizures. Patient on keppra. at bedside tells me patient was on 1000mg bid and dose decreased to 500mg bid few month ago, therefore Increased Keppra to 1000mg bid Acute resp failure Pneumonia right lower lobe Sepsis due to pneumonia. Started on iv Antibiotic history of metastatic prostate cancer COPD History of afib Not on anticoagulation leukocytosis GEO due to vasomotor nephropathy Resolved prior to discharge Total time spent on discharge, 32 mins Disposition: DC/[place]-03 [facility] - Discharge Diagnoses (1) Pneumonia Status: Acute (2) GEO (acute kidney injury) Status: Acute (3) Generalized seizure Status: Acute (4) Sepsis Status: Acute Qualifiers: Sepsis type: sepsis due to unspecified organism Qualified Code(s): A41.9 - Sepsis, unspecified organism Core Measure Documentation - Palliative Care Palliative Care/ Comfort Measures: Not Applicable - Core Measures Any of the following diagnoses?: none Exam - Constitutional Vitals: Temp Pulse Resp BP Pulse Ox 98.0 F 77 18 120/79 99 10/11/18 12:05 10/11/18 12:05 10/11/18 12:05 10/11/18 12:05 10/11/18 12:05 Plan Activity: advance as tolerated Diet: low fat, low cholesterol, low salt Additional Instructions: 1.Follow up with Physician at [facility] in 2-3 days. Follow up with: PRIMARY CARE, [Primary Care Provider] - 3-5 Days Prescriptions: Amoxicillin/K Clav Tab [Augmentin 875 mg] 1 tab PO Q12HR 5 Days #10 tab levETIRAcetam [Keppra TAB] 1,000 mg PO BID #60 tab Linezolid [Zyvox] 600 mg PO BID 5 Days #10 tablet
[2018-10-11] MEDS ORDERED: FLUSH HEPARIN IV ONE ×2 (15:02→15:05)
--- NOTE | 2018-10-11 15:09 | Progress Note ---
Assessment and Plan Cultures: 10/08/2018 blood cultures: no growth to date 10/09/2018 Urine cultures: Pily A/P: 73-year-old male with metastatic prostate cancer status post bilateral nephrostomy tubes (as per his , these were recently exchanged, patient is on schedule for exchanges once a month), currently on chemotherapy through a PORT, half-way resident, prior craniotomy and left frontotemporal encephalomalacia, seizure disorder, admitted following a seizure episode: #1 Sepsis Resolved, probably secondary to right-sided pneumonia causing acute respiratory failure: Patient may have had an aspiration episode during or post seizure. Lactate on admission elevated. #2 Right-sided pneumonia: Patient apparently was at baseline state of health a day prior. Suspect aspiration. Multiple antibiotics could cause lowering of seizure threshold including carbapenems, cefepime, metronidazole. Hence, since he is a half-way resident and start patient on IV Zosyn, renally adjusted. Continue vancomycin. #3 Acute kidney injury, Resolved. present on admission: Renally dose antimicrobials #4 Acute encephalopathy, seizure disorder: Trying to minimize antibiotics that can lower seizure threshold. #5 Metastatic prostate cancer: on chemo, has PORT, has bilateral nephrostomy tubes. Recs: Continue IV Zosyn renally adjusted, D3 continue IV vancomycin, D4 follow-up blood cultures Discharge on PO Augmentin 875 BID , Linezolid 600 mg BID for total 5 days Case management to assist with cost [employer] M: [phone] O:[phone] Subjective Date of service: 10/11/18 Interval history: Patient seen and examined. Denied pain, SOB or fevers. Stated that he was feeling better today. Family at bedside. Nurses notes, lab and reports reviewed, discussed with patient. Objective - Exam Narrative Exam: Constitutional: awake, alert no acute distress Head, Ears, Nose: Normocephalic, atraumatic. External ears, nose normal Eyes: Conjunctivae/corneas clear. No icterus. No ptosis. Neck: Supple, no meningeal signs Oral: Dentition good, no thrush Cardiovascular: S1, S2 normal. Respiratory: Good air entry, clear to auscultation bilaterally GI: Soft, non-tender; bowel sounds normal. No peritoneal signs Musculoskeletal: No pedal edema, no cyanosis. B/L Nephrostomy tubes + with dark urine Skin: No rash or abscess Hem/Lymphatic: No palpable cervical or supraclavicular nodes. No lymphangitis Psych: no agitation Neurological: drowsy, can be awakened, following simple commands. - Constitutional Vitals: Vital Signs Temp Pulse Resp BP Pulse Ox 98.0 F 77 18 120/79 99 10/11/18 12:05 10/11/18 12:05 10/11/18 12:05 10/11/18 12:05 10/11/18 12:05 Temperature -Last 24 Hours Temperature 98.0 F Temperature 97.7 F Temperature 98.0 F Temperature 98.0 F Temperature 97.0 F - Labs CBC & Chem 7: 10/11/18 06:54 10/11/18 06:54 Labs: Abnormal lab results 10/11/18 10/11/18 Range/Units 06:54 06:54 WBC 12.3 H (4.5-11.0) K/mm3 RBC 3.02 L (3.65-5.03) M/mm3 Hgb 7.5 L (11.8-15.2) gm/dl Hct 23.7 L (35.5-45.6) % MCV 78 L (84-94) fl MCH 25 L (28-32) pg RDW 21.0 H (13.2-15.2) % Sodium 146 H (137-145) mmol/L Chloride 112.3 H (98-107) mmol/L Carbon Dioxide 21 L (22-30) mmol/L BUN 33 H (9-20) mg/dL Glucose 108 H (75-100) mg/dL
== END 2018-10-11 15:40 | DRG 871 ==
LOC: ED 14:26 → CC1 16:09 → 4A 10-09 21:22
PROVIDERS: ADMIT Internal Medicine; ATTEND Internal Medicine
PROC: 4A033R1 Measurement of Arterial Saturation, Peripheral, Percutaneous Approach (ICD-10-PCS; principal; 2018-10-08)
PROC: 5A09357 Assistance with Respiratory Ventilation, Less than 24 Consecutive Hours, Continuous Positive Airway Pressure (ICD-10-PCS; 2018-10-08)
DX: A41.9 Sepsis, unspecified organism (principal); J96.01 Acute respiratory failure with hypoxia; G92 Toxic encephalopathy; J18.9 Pneumonia, unspecified organism; N17.9 Acute kidney failure, unspecified; J44.0 Chronic obstructive pulmonary disease with (acute) lower respiratory infection; C61 Malignant neoplasm of prostate; J44.1 Chronic obstructive pulmonary disease with (acute) exacerbation; G40.909 Epilepsy, unspecified, not intractable, without status epilepticus; E87.6 Hypokalemia; N18.2 Chronic kidney disease, stage 2 (mild); I12.9 Hypertensive chronic kidney disease with stage 1 through stage 4 chronic kidney disease, or unspecified chronic kidney disease; E83.42 Hypomagnesemia; I48.91 Unspecified atrial fibrillation; Z86.718 Personal history of other venous thrombosis and embolism; Z79.899 Other long term (current) drug therapy; Z79.82 Long term (current) use of aspirin; Z87.891 Personal history of nicotine dependence; Z72.89 Other problems related to lifestyle; Z86.73 Personal history of transient ischemic attack (TIA), and cerebral infarction without residual deficits
CPT/HCPCS: 36415; 70450; 71045; 80048; 80053; 80061; 80076; 81001; 82140; 82803; 83036; 83735; 83880; 84484; 85007; 85025; 85027; 85610; 85670; 85730; 87040; 87086; 93005; 93010; 93306; 94640; 94660; 94760; 96365; 96367; G0378; J1642; J1953; J2060; J2185; J2543; J2920; J2930; J3370; J3475; J7030; J7040